=== PATIENT | male | born 1930 | race Caucasian/White ===

== ENCOUNTER 2017-11-06 17:36 | Outpatient (CLI) | payer OTHER | END 2017-11-06 17:37 | disposition critical access hospital (66) | LOC: EMS 17:36 | PROVIDERS: ATTEND Surgery | DX: R53.1 Weakness (principal) | CPT/HCPCS: A0425; A0427 ==

== ENCOUNTER 2017-11-06 18:15 | Inpatient (IN) | payer OTHER ==
[2017-11-06] MEDS ORDERED: SODIUM CHLORIDE 0.9% 1,000 ML IV ONE ×2 (18:27)
--- NOTE | 2017-11-06 18:36 | ED Physician Documentation ---
History of Present Illness - Stated complaint Stated Complaint: FEVER - Chief complaint Chief Complaint: Fever - History obtained from History obtained from: Patient, Family - History of Present Illness Timing: Today Pain level max: 0 Pain level now: 0 Improved by: zofran helped the vomiting Worsened by: nothing - Additonal information Additional information: Patient is an 87-year-old male who presents to the emergency department with weakness today. He was unable to get himself out of bed today. Found to have a fever. They called 911 and EMS picked him up. He started vomiting when EMS arrived. They gave him Zofran and the vomiting has not resolved. He denies any pain anywhere. States that he has had some coughing and nasal congestion but that started today. Lives at home with his . Review of Systems Ten Systems: 10 systems reviewed and negative Constitutional: reports: Fever, Chills Ears: denies: Ear pain Nose: reports: Rhinorrhea / runny nose, Congestion Throat: denies: Sore throat Cardiac: denies: Chest pain / pressure Respiratory: reports: Cough GI: denies: Abdominal Pain, Vomiting, Diarrhea : denies: Dysuria, Frequency, Hesitancy Skin: denies: Rash Musculoskeletal: denies: Neck pain, Back pain Neurologic: denies: Headache PD PAST MEDICAL HISTORY - Past Medical History Past Medical History: Yes Cardiovascular: Hypertension, High cholesterol, Coronary artery disease Respiratory: Sleep apnea - Past Surgical History Past Surgical History: Yes Cardiovascular: Coronary stent - Present Medications Home Medications: Ambulatory Orders Medication Instructions Recorded Confirmed Aspirin 1 tab PO DAILY 01/01/16 11/06/17 Atorvastatin [Lipitor] 20 mg PO DAILY 01/01/16 11/06/17 Calcium Carbonate/Vitamin D3 1 tab PO BID 01/01/16 11/06/17 [Calcium 500 + Vit D Caplet] Cetirizine [ZyrTEC] 1 tab PO DAILY 01/01/16 11/06/17 Dorzolamide 2% Ophth Drops 1 drop EACHEYE BID 01/01/16 11/06/17 [Trusopt 2% Ophth Drops] Fluticasone [Flonase] 1 spray JOE DAILY 01/01/16 11/06/17 Latanoprost 1 drop EACHEYE DAILY 01/01/16 11/06/17 Multivitamin [Multivitamins] 1 tab PO DAILY 01/01/16 11/06/17 Triamterene/Hydrochlorothiazid 1 tab PO DAILY 01/01/16 11/06/17 [Maxzide 75 mg-50 mg Tablet] Allopurinol 100 mg PO 11/06/17 Amlodipine Besylate 10 mg PO 11/06/17 Losartan Potassium 50 mg PO 11/06/17 guaiFENesin [Guaifenesin] 200 mg PO 11/06/17 - Allergies Allergies/Adverse Reactions: Allergies Allergy/AdvReac Type Severity Reaction Status Date / Time clopidogrel bisulfate * Allergy Rash Verified 11/06/17 18:20 [From Plavix] - Social History Does the pt smoke?: No Smoking Status: Never smoker Does the pt drink ETOH?: Yes Does the pt have substance abuse?: No - Immunizations Immunizations are current?: Yes PD ED PE NORMAL - Vitals Vital signs reviewed: Yes - General General: Alert and oriented X 3, No acute distress - HEENT HEENT: PERRL, Ears normal, Moist mucous membranes, Pharynx benign, Other ( slight bruising to R upper lateral eyelid.) - Neck Neck: Supple, no meningeal sign - Cardiac Cardiac: RRR, Strong equal pulses - Respiratory Respiratory: No respiratory distress, Other (diminished BS on the R) - Abdomen Abdomen: Soft, Non tender, Non distended - Back Back: No CVA TTP, No spinal TTP - Derm Derm: Warm and dry, No rash - Extremities Extremities: No edema - Neuro Neuro: Alert and oriented X 3 Results - Vitals Vitals: Vital Signs - 24 hr 11/06/17 18:16 Temperature 38 C H Heart Rate 75 Respiratory 18 Rate Blood Pressure 148/50 H O2 Saturation 93 Oxygen O2 Source Room air - Labs Labs: Laboratory Tests 11/06/17 11/06/17 11/06/17 18:39 18:39 18:39 WBC 12.2 H RBC 4.72 Hgb 13.5 L Hct 40.0 L MCV 84.9 MCH 28.7 MCHC 33.8 RDW 13.9 Plt Count 145 MPV 6.9 L Neut # (Auto) 10.9 H Lymph # (Auto) 0.3 L [place] # (Auto) 0.9 Eos # (Auto) 0.0 Baso # (Auto) 0.0 Absolute Nucleated RBC 0.04 Nucleated RBC % 0.3 Sodium 137 Potassium 2.8 L Chloride 105 Carbon Dioxide 26 Anion Gap 6.0 BUN 18 Creatinine 1.3 H Estimated GFR (MDRD) 52 L Glucose 139 H Lactic Acid 1.8 Calcium 8.6 Total Bilirubin 1.2 H AST 23 ALT 17 Alkaline Phosphatase 60 Total Protein 6.8 Albumin 3.8 Globulin 3.0 Albumin/Globulin Ratio 1.3 Lipase 22 Urine Color Urine Clarity Urine pH Ur Specific [place] Urine Protein Urine Glucose (UA) Urine Ketones Urine Occult Blood Urine Nitrite Urine Bilirubin Urine Urobilinogen Ur Leukocyte Esterase Urine RBC Urine WBC Ur Squamous Epith Cells Urine Bacteria Ur Microscopic Review Urine Culture Comments 11/06/17 18:56 WBC RBC Hgb Hct MCV MCH MCHC RDW Plt Count MPV Neut # (Auto) Lymph # (Auto) [place] # (Auto) Eos # (Auto) Baso # (Auto) Absolute Nucleated RBC Nucleated RBC % Sodium Potassium Chloride Carbon Dioxide Anion Gap BUN Creatinine Estimated GFR (MDRD) Glucose Lactic Acid Calcium Total Bilirubin AST ALT Alkaline Phosphatase Total Protein Albumin Globulin Albumin/Globulin Ratio Lipase Urine Color YELLOW Urine Clarity CLEAR Urine pH 5.5 Ur Specific [place] 1.025 Urine Protein 30 H Urine Glucose (UA) NEGATIVE Urine Ketones NEGATIVE Urine Occult Blood SMALL H Urine Nitrite NEGATIVE Urine Bilirubin NEGATIVE Urine Urobilinogen 0.2 (NORMAL) Ur Leukocyte Esterase NEGATIVE Urine RBC 0-5 Urine WBC 0-3 Ur Squamous Epith Cells RARE Squamous Urine Bacteria None Seen Ur Microscopic Review INDICATED Urine Culture Comments NOT INDICATED - Rads (name of study) cxr Radiology: Prelim report reviewed, EMP read contemporaneously, See rad report ( L basilar atelectasis) head CT Radiology: Prelim report reviewed, EMP read contemporaneously, See rad report ( No acute intracranial abnormality is identified. No acute fracture. Parenchymal volume loss and chronic white matter changes. Right frontal and right periorbital soft tissue edema. ) PD MEDICAL DECISION MAKING - ED course Complexity details: reviewed results, re-evaluated patient, considered differential, d/w patient, d/w family, d/w senior science consultant ED course: Patient is an 87-year-old gentleman who presents to the emergency department with fever and weakness. He is ill-appearing. Given Rocephin and azithromycin for what appears to be a left lower lobe pneumonia. He is hypoxic as well. 88- 92% on room air, satting better on 2 L. He is unable to stand unassisted and is unable to walk even with assistance. Blood cultures were drawn. IV fluids given. Discussed the case with the hospitalist, Dr. Heredia who accepts. This document was made in part using voice recognition software. While efforts are made to proofread this document, sound alike and grammatical errors may occur. - Sepsis Event Vital Signs: Vital Signs - 24 hr 11/06/17 18:16 Temperature 38 C H Heart Rate 75 Respiratory 18 Rate Blood Pressure 148/50 H O2 Saturation 93 Oxygen O2 Source Room air Departure - Departure Disposition: [facility] DC/Xfer Clinical Impression: Hypoxia, Hypokalemia, Dehydration, Weakness Pneumonia Qualifiers: Pneumonia type: due to unspecified organism Laterality: left Lung location: lower lobe of lung Qualified Code(s): J18.1 - Lobar pneumonia, unspecified organism Fever Qualifiers: Fever type: unspecified Qualified Code(s): R50.9 - Fever, unspecified Condition: Stable Discharge Date/Time: 11/06/17 20:40
[2017-11-06 18:47] LABS: BASOPHILS % (AUTO) 0.3 %; HGB - HEMOGLOBIN 13.5 g/dL (14.0-18.0); LYMPHOCYTES # (AUTO) 0.3 10^3/uL (1.5-3.5); LYMPHOCYTES % (AUTO) 2.7 %; MEAN CORPUSCULAR HEMOGLOBIN 28.7 pg (27.0-31.0); MEAN CORPUSCULAR HGB CONC 33.8 g/dL (32.0-36.0); MEAN CORPUSCULAR VOLUME 84.9 fL (80.0-94.0); MEAN PLATELET VOLUME 6.9 fL (7.4-11.4); MONOCYTES # (AUTO) 0.9 10^3/uL (0.0-1.0); MONOCYTES % (AUTO) 7.7 %; NEUTROPHILS # (AUTO) 10.9 10^3/uL (1.5-6.6); NEUTROPHILS % (AUTO) 89.3 %; PLT - PLATELET COUNT 145 10^3/uL (130-450); RED BLOOD COUNT 4.72 10^6/uL (4.70-6.10); RED CELL DISTRIBUTION WIDTH 13.9 % (12.0-15.0); WHITE BLOOD COUNT 12.2 x10^3/uL (4.8-10.8)
[2017-11-06 18:59] LABS: ALBUMIN 3.8 g/dL (3.2-5.5); ALBUMIN/GLOBULIN RATIO 1.3 (1.0-2.2); BILIRUBIN,TOTAL 1.2 mg/dL (0.2-1.0); CALCIUM 8.6 mg/dL (8.5-10.3); CREATININE 1.3 mg/dL (0.6-1.2); TOTAL PROTEIN 6.8 g/dL (6.7-8.2)
[2017-11-06 19:07] LABS: BILIRUBIN,URINE NEGATIVE (NEGATIVE); GLUCOSE, URINE (UA) NEGATIVE (NEGATIVE); KETONES,URINE (UA) NEGATIVE (NEGATIVE); LEUKOCYTE ESTERASE, URINE NEGATIVE (NEGATIVE); NITRITE,URINE NEGATIVE (NEGATIVE); OCCULT BLOOD,URINE SMALL (NEGATIVE); PH,URINE 5.5 PH (5.0-7.5); PROTEIN,URINE 30 mg/dL (NEGATIVE); UROBILINOGEN,URINE 0.2 (NORMAL) E.U./dL (NORMAL)
[2017-11-06 19:13] LABS: CLARITY,URINE CLEAR (CLEAR)
[2017-11-06 19:14] LABS: BACTERIA,URINE None Seen /HPF (None Seen); RBC,URINE 0-5 /HPF (0-5); SQUAMOUS EPITHELIAL CELL,UR RARE Squamous (<= Few)
--- NOTE | 2017-11-06 19:25 | XRAY Report ---
Procedure Date: 11/06/2017 Accession Number: [id number] / [id number] Procedure: XR - Chest 1 View X-Ray CPT Code: 37818 FULL RESULT: EXAM: CHEST RADIOGRAPHY EXAM DATE: 11/06/2017 06:38 PM. CLINICAL HISTORY: Fever, cough. COMPARISON: Chest x-ray 01/01/2016. TECHNIQUE: 1 view. FINDINGS: Lungs/Pleura: Mild elevation right hemidiaphragm. No pleural effusion or pneumothorax. Trace left basilar atelectasis. Mediastinum: Within exam limitations, the cardiomediastinal contour is normal. Other: Bilateral glenohumeral osteoarthritis. IMPRESSION: Trace left basilar atelectasis. RADIA
[2017-11-06] MEDS ORDERED: AZITHROMYCIN INJ 500 MG in SODIUM CHLORIDE 0.9% 250 ML IV STA (19:37)
[2017-11-06] MEDS ORDERED: cefTRIAXone 1 GM VIAL IVP STA (19:37)
[2017-11-06] MEDS ORDERED: HYDROcod/ACETAM 5/325 MG TABLET PO PRN (20:05)
[2017-11-06] MEDS ORDERED: SODIUM CHLORIDE FLUSH 0.9% 10 ML SYRINGE IVP PRN (20:05)
[2017-11-06] MEDS ORDERED: TEMAZEPAM 15 MG CAPSULE PO PRN (20:05)
--- NOTE | 2017-11-06 20:43 | CT Report ---
Procedure Date: 11/06/2017 Accession Number: [id number] / [id number] Procedure: CT - Head W/O CPT Code: FULL RESULT: EXAM: CT HEAD EXAM DATE: 11/06/2017 07:56 PM. CLINICAL HISTORY: Fall, R eyelid bruising, doesn't recall injury. COMPARISON: None. TECHNIQUE: Multiaxial CT images were obtained from the foramen magnum to the vertex. Reformats: Coronal. IV contrast: None. In accordance with CT protocol optimization, one or more of the following dose reduction techniques were utilized for this exam: automated exposure control, adjustment of mA and/or KV based on patient size, or use of iterative reconstructive technique. FINDINGS: Parenchyma: Parenchymal volume loss with periventricular regions of low attenuation. No evidence of an acute vascular insult or acute parenchymal hemorrhage. No midline shift. No mass effect . Extraaxial Spaces: Extra-axial spaces are prominent. No subdural or epidural collections identified. Ventricles: Ventricles are prominent although symmetric. Sinuses and Orbits: Moderate left ethmoid sinus disease. Remainder of the paranasal sinuses and mastoid air cells are clear. Bones: No evidence of fracture or calvarial defect. Other: Right frontal and right supraorbital and periorbital soft tissue edema. Globes and orbits are unremarkable. Vascular calcifications are noted. IMPRESSION: 1. No acute intracranial abnormality is identified. 2. No acute fracture. 3. Parenchymal volume loss and chronic white matter changes. 4. Right frontal and right periorbital soft tissue edema. RADIA
[2017-11-06] MEDS ORDERED: AZITHROMYCIN INJ 500 MG in SODIUM CHLORIDE 0.9% 250 ML IV SCH (21:00)
[2017-11-06] MEDS ORDERED: DORZOLAMIDE 2% OPHTH DROPS EACHEYE SCH (21:00)
[2017-11-06] MEDS ORDERED: D5.45NS W/20 MEQ KCL 1,000 ML IV SCH (21:00)
--- NOTE | 2017-11-06 21:59 | HISTORY & PHYSICAL EXAMINATION ---
Chief Complaint - Chief Complaint Chief Complaint: "I have no energy" History of Present Illness - Admitted From Admitted From:: Home - History Obtained From History obtained from: Patient, , ED physician Exam Limitations: Pt is sleepy - History of Present Illness HPI Comment/Other: Mr. Osvaldo Kelley is a very pleasant 87-year-old gentleman who is somewhat sleepy at the time of the exam who states that he woke up this morning with no energy. He says he felt fine yesterday but today when he woke up he was so tired that he could not get out of bed. He went back to sleep and when he realized that he was not getting better but in fact may be even a little worse he decided to come to the emergency department where he was found to have a left lower lobe pneumonia. He will be admitted to medical surgical bed, placed on IV antibiotics, supplemental oxygen, and bronchodilators. History - Past Medical History Cardiovascular: reports: Congestive heart failure, Hypertension, High cholesterol, Coronary artery disease Respiratory: reports: Sleep apnea HEENT: reports: Glaucoma, Other (Allergic rhinitis) Musculoskeletal: reports: Gout - Past Surgical History Cardiovascular: reports: Coronary stent - Family & Social History Family History: Mother: , CAD, Hyperlipidemia, Hypertension, Father: , CAD, Hyperlipidemia, Hypertension Living arrangement: At home Living Situation: With spouse/s.o. - Substance History Use: Uses substance without health or social issues: Alcohol Abuse: Recurrent use of substance despite neg consequences: NONE Dependence: Experiences withdrawal or developed tolerances: NONE - POLST Patient has POLST: No POLST Status: Full Code Meds/Allgy - Home Medications Home Medications: Ambulatory Orders Medication Instructions Recorded Confirmed Aspirin 1 tab PO DAILY 01/01/16 11/06/17 Atorvastatin [Lipitor] 20 mg PO DAILY 01/01/16 11/06/17 Calcium Carbonate/Vitamin D3 1 tab PO BID 01/01/16 11/06/17 [Calcium 500 + Vit D Caplet] Cetirizine [ZyrTEC] 1 tab PO DAILY 01/01/16 11/06/17 Dorzolamide 2% Ophth Drops 1 drop EACHEYE BID 01/01/16 11/06/17 [Trusopt 2% Ophth Drops] Fluticasone [Flonase] 1 spray JOE DAILY 01/01/16 11/06/17 Latanoprost 1 drop EACHEYE DAILY 01/01/16 11/06/17 Multivitamin [Multivitamins] 1 tab PO DAILY 01/01/16 11/06/17 Triamterene/Hydrochlorothiazid 1 tab PO DAILY 01/01/16 11/06/17 [Maxzide 75 mg-50 mg Tablet] Allopurinol 100 mg PO 11/06/17 Amlodipine Besylate 10 mg PO 11/06/17 Losartan Potassium 50 mg PO 11/06/17 guaiFENesin [Guaifenesin] 200 mg PO 11/06/17 - Allergies Allergies/Adverse Reactions: Allergies Allergy/AdvReac Type Severity Reaction Status Date / Time clopidogrel bisulfate * Allergy Rash Verified 11/06/17 18:20 [From Plavix] Review of Systems - Constitutional Constitutional: reports: Fatigue, Fever, Chills, Malaise, Weakness, Poor appetite. denies: Night sweats - Eyes Eyes: denies: Pain, Irritation, Amaurosis, Blurred vision - Ears, Nose & Throat Ears, Nose & Throat: denies: Ear pain, Hearing loss, Tinnitus, Vertigo, Nasal pain, Nosebleeds - Cardiovascular Cariovascular: denies: Irregular heart rate, Palpitations, Chest pain, Edema - Respiratory Respiratory: denies: Cough, Sputum production, Wheezing, Hemoptysis, Orthopnea - Gastrointestinal Gastrointestinal: denies: Abdominal pain, Abdominal distention, Constipation, Diarrhea, Change in bowel habits, Rectal bleeding - Genitourinary Genitourinary: denies: Dysuria, Frequency, Urgency, Hematuria - Musculoskeletal Musculoskeletal: denies: Muscle pain, Back pain, Muscle aches, Stiffness - Integumentary Integumentary: denies: Rash, Pruritis, Lesions, Dryness - Neurological Neurological: reports: General weakness. denies: Focal weakness, Headache, Dizziness, Abnormal gait, Seizures, Slurred speech - Psychiatric Psychiatric: denies: Depression, Anxiety, Suicidal, Hallucinations - Endocrine Endocrine: denies: Polyuria, Polydypsia, Polyphagia - Hematologic/Lymphatic Hematologic/Lymphatic: denies: Anemia, Bruising, Lymphadenopathy - All Other Systems All Other Systems: reports: Reviewed and negative Exam - Vital Signs Reviewed Vital Signs: Yes Vital Signs: Vital Signs x48h Temp Pulse Pulse Resp BP BP Pulse Ox 11/06/17 20:41 37.7 C H 79 16 140/56 H 89 L 11/06/17 20:13 37.7 C H 74 26 H 148/60 H 93 - Physical Exam General Appearance: positive: No acute distress, Lethargic Eyes Bilateral: positive: Normal inspection, PERRL, EOMI, No lid inflammation, Conjunctivae nml, No scleral icterus ENT: positive: ENT inspection nml, Pharynx nml, No signs of dehydration Neck: positive: Nml inspection, Thyroid nml, No JVD, Trachea midline. negative : Thyromegaly Respiratory: positive: Chest non-tender, No respiratory distress, Breath sounds nml. negative: Wheezes, Rales, Rhonchi Cardiovascular: positive: Regular rate & rhythm, No murmur, No gallop Peripheral Pulses: positive: 1+ Abdomen: positive: Non-tender, No organomegaly, Nml bowel sounds, No distention. negative: Guarding, Rebound Back: positive: Nml inspection. negative: CVA tenderness (R), CVA tenderness (L ) Skin: positive: Color nml, No rash, Warm, Dry. negative: Cyanosis Extremities: positive: Non-tender, Full ROM, Nml appearance, No pedal edema Neurologic/Psychiatric: positive: Oriented x3, CN's nml (2-12), Motor nml, Sensation nml, Mood/affect nml Conclusion/Plan - Problem List (1) Pneumonia Conclusion/Plan: Left basilar atelectasis seen on chest x-ray, patient has a nonproductive cough and fever. He also has an elevated white count. We will start the patient on ceftriaxone and azithromycin IV, give him supplemental oxygen and bronchodilators as needed, and address any other comorbidities as needed. Qualifiers: Pneumonia type: due to unspecified organism Laterality: left Lung location: lower lobe of lung Qualified Code(s): J18.1 - Lobar pneumonia, unspecified organism (2) Hypertension Conclusion/Plan: We will continue the patient on amlodipine, losartan, and his diuretics while he is in hospital. (3) Congestive heart failure Conclusion/Plan: We will continue the patient on his amlodipine, losartan, and diuretics while he is inpatient. (4) Coronary artery disease Conclusion/Plan: The patient is status post stenting. We will continue him on his daily aspirin while he is inpatient. (5) Hyperlipidemia Conclusion/Plan: Presumably well-managed, we will continue the patient on his home dosing of Lipitor while he is inpatient. (6) History of gout Conclusion/Plan: No evidence of active gout at this time. We will continue the patient on allopurinol while he is inpatient. (8) Glaucoma Conclusion/Plan: We will continue the patient on dorzolamide and latanoprost while he is inpatient. - Lab Results Lab results reviewed: Yes Fish Bones: 11/06/17 18:39 11/06/17 18:39 - Diagnostic Imaging Results Diagnostic Imaging Results Comments: EXAM: CHEST RADIOGRAPHY EXAM DATE: 11/06/2017 06:38 PM. CLINICAL HISTORY: Fever, cough. COMPARISON: Chest x-ray 01/01/2016. TECHNIQUE: 1 view. FINDINGS: Lungs/Pleura: Mild elevation right hemidiaphragm. No pleural effusion or pneumothorax. Trace left basilar atelectasis. Mediastinum: Within exam limitations, the cardiomediastinal contour is normal. Other: Bilateral glenohumeral osteoarthritis. IMPRESSION: Trace left basilar atelectasis. EXAM: CT HEAD EXAM DATE: 11/06/2017 07:56 PM. CLINICAL HISTORY: Fall, R eyelid bruising, doesn't recall injury. COMPARISON: None. TECHNIQUE: Multiaxial CT images were obtained from the foramen magnum to the vertex. Reformats: Coronal. IV contrast: None. In accordance with CT protocol optimization, one or more of the following dose reduction techniques were utilized for this exam: automated exposure control, adjustment of mA and/or KV based on patient size, or use of iterative reconstructive technique. FINDINGS: Parenchyma: Parenchymal volume loss with periventricular regions of low attenuation. No evidence of an acute vascular insult or acute parenchymal hemorrhage. No midline shift. No mass effect . Extraaxial Spaces: Extra-axial spaces are prominent. No subdural or epidural collections identified. Ventricles: Ventricles are prominent although symmetric. Sinuses and Orbits: Moderate left ethmoid sinus disease. Remainder of the paranasal sinuses and mastoid air cells are clear. Bones: No evidence of fracture or calvarial defect. Other: Right frontal and right supraorbital and periorbital soft tissue edema. Globes and orbits are unremarkable. Vascular calcifications are noted. IMPRESSION: 1. No acute intracranial abnormality is identified. 2. No acute fracture. 3. Parenchymal volume loss and chronic white matter changes. 4. Right frontal and right periorbital soft tissue edema. Core Measures - Anticipated LOS I expect patient to be DC'd or transferred within 96 hours.: Yes - DVT/VTE - Prophylaxis VTE/DVT Device ordered at admit?: Yes
[2017-11-06] MEDS: POTASSIUM CHLOR 10 MEQ/100 ML 10 MEQ/100 ML BAG IV SCH (22:54)
[2017-11-07] MEDS: POTASSIUM CHLOR 10 MEQ/100 ML 10 MEQ/100 ML BAG IV SCH ×3 (00:05→02:19)
[2017-11-07] MEDS: SODIUM CHLORIDE FLUSH 0.9% 10 ML SYRINGE IVP SCH ×3 (00:17→15:43)
[2017-11-07] MEDS: ACETAMINOPHEN 325 MG TABLET PO PRN ×2 (01:30→08:36)
[2017-11-07 05:44] LABS: HGB - HEMOGLOBIN 13.2 g/dL (14.0-18.0); MEAN CORPUSCULAR HEMOGLOBIN 29.2 pg (27.0-31.0); MEAN CORPUSCULAR HGB CONC 34.6 g/dL (32.0-36.0); MEAN CORPUSCULAR VOLUME 84.6 fL (80.0-94.0); MEAN PLATELET VOLUME 7.2 fL (7.4-11.4); RED BLOOD COUNT 4.5 10^6/uL (4.70-6.10); RED CELL DISTRIBUTION WIDTH 14.2 % (12.0-15.0); WHITE BLOOD COUNT 12.1 x10^3/uL (4.8-10.8)
[2017-11-07 06:00] LABS: CALCIUM 8.5 mg/dL (8.5-10.3); CREATININE 1.4 mg/dL (0.6-1.2)
[2017-11-07] MEDS ORDERED: AZITHROMYCIN INJ 500 MG in SODIUM CHLORIDE 0.9% 250 ML IV SCH (07:46)
[2017-11-07] MEDS ORDERED: POTASSIUM CHLORIDE 20 MEQ TABLET PO ONE ×3 (07:47→15:43)
[2017-11-07] MEDS ORDERED: NS W/40 MEQ KCL 1,000 ML IV SCH (08:00)
[2017-11-07] MEDS: POLYETHYLENE GLYCOL 3350 17 GM PACKET PO SCH (08:16)
[2017-11-07] MEDS: CETIRIZINE 10 MG TABLET PO SCH (08:36)
[2017-11-07] MEDS: ATORVASTATIN 10 MG TABLET PO SCH (08:36)
[2017-11-07] MEDS: ASPIRIN CHEW 81 MG TABLET PO SCH (08:36)
[2017-11-07] MEDS: TRIAMT/HCTZ 37.5 MG/25 MG CAPSULE PO SCH (08:36)
[2017-11-07] MEDS: POTASSIUM CHLORIDE 20 MEQ TABLET PO SCH ×2 (08:36→19:35)
[2017-11-07] MEDS: FLUTICASONE NASAL SPRAY NAS SCH (08:37)
[2017-11-07] MEDS: DORZOLAMIDE 2% OPHTH DROPS EACHEYE SCH ×2 (08:37→19:36)
[2017-11-07] MEDS ORDERED: cefTRIAXone 1 GM in SODIUM CHLORIDE 0.9% MINIBAG 100 ML IV SCH (09:00)
--- NOTE | 2017-11-07 09:01 | PROVIDER PROGRESS NOTE ---
Subjective - Prog Note Date Prog Note Date: 11/07/17 - Subjective Pt reports feeling: Improved Subjective: pt report he felt better than yesterday, but he still had low degree fever. He denies CP, headache, abdominal pain, N/V. nurse report he had water-like diarrhea. Current Medications - Current Medications Current Medications: Active Medications Acetaminophen (Tylenol) 650 mg PO Q4HR PRN PRN Reason: Pain or Fever > 38C (100.4F) Last Admin: 11/07/17 08:36 Dose: 650 mg Hydrocodone Bitart/Acetaminophen ([place] 5/325) 1 tab PO Q4HR PRN PRN Reason: Pain 5 to 7 Allopurinol (Zyloprim) 100 mg PO DAILY [facility] Amlodipine Besylate (Norvasc) 10 mg PO DAILY [facility] Aspirin ([place] Aspirin) 81 mg PO DAILY [facility] Last Admin: 11/07/17 08:36 Dose: 81 mg Atorvastatin Calcium (Lipitor) 20 mg PO DAILY [facility] Last Admin: 11/07/17 08:36 Dose: 20 mg Cetirizine HCl (Zyrtec) 10 mg PO DAILY [facility] Last Admin: 11/07/17 08:36 Dose: 10 mg Dorzolamide HCl (Trusopt 2% Ophth Drops) 1 drops EACHEYE BID [facility] Last Admin: 11/07/17 08:37 Dose: 1 drops Fluticasone Propionate (Flonase) 1 sprays JOE DAILY [facility] Last Admin: 11/07/17 08:37 Dose: 1 sprays Potassium Chloride/Sodium Chloride (Normal Saline 0.9% W/40 Meq Kcl) 1,000 mls @ 100 mls/hr IV .Q10H [facility] Stop: 11/07/17 17:59 Last Infusion: 11/07/17 12:30 Dose: 100 mls/hr Cefepime HCl 1 gm/ Sodium (Chloride) 100 mls @ 200 mls/hr IV BID [facility] Last Infusion: 11/07/17 10:15 Dose: Infused Vancomycin HCl 2 gm/ Sodium (Chloride) 500 mls @ 250 mls/hr IV ONCE [facility] Stop: 11/07/17 14:00 Last Infusion: 11/07/17 12:31 Dose: Infused Vancomycin HCl 1 gm/Vancomycin HCl 500 mg/ Sodium Chloride 500 mls @ 250 mls/ hr IV Q24H [facility] Latanoprost (Xalatan Ophth Drops) 1 drops EACHEYE QPM [facility] Polyethylene Glycol (Miralax) 17 gm PO DAILY [facility] Last Admin: 11/07/17 08:16 Dose: Not Given Potassium Chloride (K-Dur) 20 meq PO BID [facility] Last Admin: 11/07/17 08:36 Dose: 20 meq Sodium Chloride (Normal Saline Flush 0.9%) 10 ml IVP PRN PRN PRN Reason: NEEDED PER PROVIDER ORDERS Sodium Chloride (Normal Saline Flush 0.9%) 10 ml IVP 0100,0900,1700 [facility] Last Admin: 11/07/17 08:37 Dose: 10 ml Temazepam (Restoril) 15 mg PO QPM PRN PRN Reason: Insomnia Triamterene/HCTZ (Dyazide) 2 cap PO DAILY [facility] Last Admin: 11/07/17 08:36 Dose: 2 cap Aspirin 81 mg PO DAILY 01/01/16 Atorvastatin [Lipitor] 20 mg PO DAILY 01/01/16 Calcium Carbonate/Vitamin D3 [Calcium 500 + Vit D Caplet] 1 tab PO BID 01/01/16 Cetirizine [ZyrTEC] 10 mg PO DAILY 01/01/16 Dorzolamide 2% Ophth Drops [Trusopt 2% Ophth Drops] 1 drop EACHEYE BID 01/01/16 Fluticasone [Flonase] 1 spray JOE DAILY 01/01/16 Latanoprost 1 drop EACHEYE DAILY 01/01/16 Multivitamin [Multivitamins] 1 tab PO DAILY 01/01/16 Triamterene/Hydrochlorothiazid [Maxzide 75 mg-50 mg Tablet] 1 tab PO DAILY 12/31 Allopurinol 100 mg PO DAILY 11/06/17 Amlodipine Besylate 10 mg PO DAILY 11/06/17 Losartan Potassium 50 mg PO DAILY 11/06/17 Objective - Vital Signs/Intake & Output Reviewed Vital Signs: Yes Vital Signs: Vital Signs x48h Temp Pulse Resp BP Pulse Ox 11/07/17 08:00 38.1 C H 68 16 123/53 L 98 11/07/17 03:45 37.7 C H Intake & Output: Intake & Output 11/04/17 11/05/17 11/06/17 11/07/17 23:59 23:59 23:59 23:59 Intake Total 436.667 810 Output Total 375 Balance 436.667 435 - Objective General Appearance: positive: No acute distress, Alert. negative: Lethargic Eyes Bilateral: positive: Normal inspection, PERRL, No lid inflammation, Conjunctivae nml ENT: positive: ENT inspection nml, Pharynx nml, No signs of dehydration. negative: Purulent nasal drainage, Pharyngeal erythema, Oral lesions Neck: positive: Nml inspection, Thyroid nml, No JVD, Trachea midline. negative : Thyromegaly, Lymphadenopathy (R), Lymphadenopathy (L), Stiff neck, Kernig's sign, Carotid bruit, Swelling/bruising, Tracheal deviation Respiratory: positive: Chest non-tender, No respiratory distress, Breath sounds nml. negative: Wheezes, Rales, Rhonchi Cardiovascular: positive: Regular rate & rhythm, No gallop, Systolic murmur, Diastolic murmur. negative: Irregularly irregular, Extrasystoles, Tachycardia, Bradycardia, JVD present Peripheral Pulses: 2+ Radial (R), 2+ Radial (L), 2+ Dorsalis pedis (R), 2+ Dorsalis pedis (L) Abdomen: positive: Non-tender, No organomegaly, Nml bowel sounds, No distention. negative: Tenderness, Guarding, Rebound Back: positive: Nml inspection. negative: CVA tenderness (R), CVA tenderness (L ) Skin: positive: Color nml, No rash, Warm, Dry. negative: Cyanosis, Diaphoresis , Pallor Extremities: positive: Non-tender, Full ROM, Nml appearance. negative: Calf tenderness, Joint swelling, Amina's sign/cords Neurologic/Psychiatric: positive: Oriented x3, Motor nml, Sensation nml. negative: Weakness, Sensory loss, Facial droop, Slurred/abnml speech, Depressed mood/affect - Lab Results Fish Bones: 11/07/17 05:15 11/07/17 05:15 Other Labs: Lab Results x24hrs 11/07/17 11/07/17 Range/Units 05:15 05:15 WBC 12.1 H (4.8-10.8) x10^3/uL RBC 4.50 L (4.70-6.10) 10^6/uL Hgb 13.2 L (14.0-18.0) g/dL Hct 38.1 L (42.0-52.0) % MCV 84.6 (80.0-94.0) fL MCH 29.2 (27.0-31.0) pg MCHC 34.6 (32.0-36.0) g/dL RDW 14.2 (12.0-15.0) % Plt Count 123 L (130-450) 10^3/uL MPV 7.2 L (7.4-11.4) fL Sodium 140 (135-145) mmol/L Potassium 2.9 L (3.5-5.0) mmol/L Chloride 105 (101-111) mmol/L Carbon Dioxide 26 (21-32) mmol/L Anion Gap 9.0 (6-13) BUN 19 (6-20) mg/dL Creatinine 1.4 H (0.6-1.2) mg/dL Estimated GFR (MDRD) 48 L (>89) Glucose 129 H (70-100) mg/dL Calcium 8.5 (8.5-10.3) mg/dL ABX Reporting Has patient been on IV antibiotics over the past 48 hours?: Yes Assessment/Plan - Problem List (1) Pneumonia Impression: Conclusion/Plan: pt present Fever, elevated WBC, possible pneumonia. since pt continue to have fever, and WBC remain the same. Lactic acid in normal arrange switch antibiotics to Cefepim, and vancomycin blood culture pending IVF Left basilar atelectasis seen on chest x-ray, patient has a nonproductive cough and fever. He also has an elevated white count. We will start the patient on ceftriaxone and azithromycin IV, give him supplemental oxygen and bronchodilators as needed, and address any other comorbidities as needed. Qualifiers: Pneumonia type: due to unspecified organism Laterality: left Lung location: lower lobe of lung Qualified Code(s): J18.1 - Lobar pneumonia, unspecified organism (2) Hypertension Conclusion/Plan: stable, continue home regime We will continue the patient on amlodipine, losartan, and his diuretics while he is in hospital. (3) Congestive heart failure Conclusion/Plan: stable, continue home regime We will continue the patient on his amlodipine, losartan, and diuretics while he is inpatient. (4) Coronary artery disease Conclusion/Plan: The patient is status post stenting. We will continue him on his daily aspirin while he is inpatient. (5) Hyperlipidemia Conclusion/Plan: Presumably well-managed, we will continue the patient on his home dosing of Lipitor while he is inpatient. (6) History of gout Conclusion/Plan: No evidence of active gout at this time. We will continue the patient on allopurinol while he is inpatient. (8) Glaucoma Conclusion/Plan: We will continue the patient on dorzolamide and latanoprost while he is inpatient. (9) hypokalemia pt continue to have potassium 2.9 after replacement of [address] Heredia's report continue replace, with PO and IV of potassium check at 1400, follow up (10) diarrhea nurse report water-likely diarrhea. pt just begin antibiotics on yesterday afternoon PCR for c.diff, Ova/para culture IVF lab and vital monitor (11) fever continue antibiotics, precaution of sepsis IVF vital monitor follow up blood culture Qualifiers: Pneumonia type: due to unspecified organism Laterality: left Lung location: lower lobe of lung Qualified Code(s): J18.1 - Lobar pneumonia, unspecified organism
[2017-11-07] MEDS: CEFEPIME 1 GM in SODIUM CHLORIDE 0.9% MINIBAG 100 ML IV SCH ×2 (09:45→19:36)
[2017-11-07] MEDS ORDERED: VANCOMYCIN INJ 2 GM in SODIUM CHLORIDE 0.9% 500 ML IV SCH ×2 (10:00→11:00)
[2017-11-07] MEDS ORDERED: ZINC OXIDE 20% OINT 28.35 GM TUBE TOP PRN (15:42)
[2017-11-07] MEDS: LATANOPROST 0.005% OPHTH DROPS EACHEYE SCH (20:05)
[2017-11-08] MEDS: SODIUM CHLORIDE FLUSH 0.9% 10 ML SYRINGE IVP SCH ×3 (01:28→17:09)
[2017-11-08] MEDS: ACETAMINOPHEN 325 MG TABLET PO PRN (05:23)
[2017-11-08 05:35] LABS: HGB - HEMOGLOBIN 12.9 g/dL (14.0-18.0); MEAN CORPUSCULAR HEMOGLOBIN 29.5 pg (27.0-31.0); MEAN CORPUSCULAR HGB CONC 34.6 g/dL (32.0-36.0); MEAN CORPUSCULAR VOLUME 85.2 fL (80.0-94.0); MEAN PLATELET VOLUME 7.1 fL (7.4-11.4); RED BLOOD COUNT 4.38 10^6/uL (4.70-6.10); RED CELL DISTRIBUTION WIDTH 14.6 % (12.0-15.0); WHITE BLOOD COUNT 8.1 x10^3/uL (4.8-10.8)
[2017-11-08 05:43] LABS: CALCIUM 8.9 mg/dL (8.5-10.3); CREATININE 1.1 mg/dL (0.6-1.2); MAGNESIUM 2.1 mg/dL (1.7-2.8); PHOSPHORUS 1.8 mg/dL (2.5-4.6)
[2017-11-08] MEDS ORDERED: POTASSIUM CHLORIDE 20 MEQ TABLET PO ONE (07:33)
[2017-11-08] MEDS: amLODIPine 5 MG TABLET PO SCH (08:17)
[2017-11-08] MEDS: CEFEPIME 1 GM in SODIUM CHLORIDE 0.9% MINIBAG 100 ML IV SCH ×2 (08:17→21:23)
[2017-11-08] MEDS: ALLOPURINOL 100 MG TABLET PO SCH (08:25)
[2017-11-08] MEDS: TRIAMT/HCTZ 37.5 MG/25 MG CAPSULE PO SCH (08:25)
[2017-11-08] MEDS: NEUTRA-PHOS 250 MG TABLET PO SCH ×3 (08:25→17:09)
[2017-11-08] MEDS: POTASSIUM CHLORIDE 20 MEQ TABLET PO SCH ×2 (08:26→21:23)
[2017-11-08] MEDS: ATORVASTATIN 10 MG TABLET PO SCH (08:26)
[2017-11-08] MEDS: CETIRIZINE 10 MG TABLET PO SCH (08:26)
[2017-11-08] MEDS: ASPIRIN CHEW 81 MG TABLET PO SCH (08:26)
[2017-11-08] MEDS: FLUTICASONE NASAL SPRAY NAS SCH (08:27)
[2017-11-08] MEDS: DORZOLAMIDE 2% OPHTH DROPS EACHEYE SCH ×2 (08:27→21:31)
[2017-11-08] MEDS: POLYETHYLENE GLYCOL 3350 17 GM PACKET PO SCH (08:27)
[2017-11-08] MEDS ORDERED: SODIUM CHLORIDE 0.9% 1,000 ML IV SCH (10:00)
[2017-11-08] MEDS: SACCHAROMYCES BOULARDII 250 MG CAPSULE PO SCH ×2 (10:40→17:09)
[2017-11-08] MEDS: VANCOMYCIN INJ 1 GM, VANCOMYCIN INJ 500 MG in SODIUM CHLORIDE 0.9% 500 ML IV SCH (11:23)
--- NOTE | 2017-11-08 12:35 | PROVIDER PROGRESS NOTE ---
Subjective - Prog Note Date Prog Note Date: 11/08/17 - Subjective Pt reports feeling: Improved Subjective: pt report he has no fever, he walked to bathroom and had shower. He feel better than yesterday. But pt report he still has some diarrhea. pt denies CP, fever, chill, SOB. Current Medications - Current Medications Current Medications: Active Medications Acetaminophen (Tylenol) 650 mg PO Q4HR PRN PRN Reason: Pain or Fever > 38C (100.4F) Last Admin: 11/08/17 05:23 Dose: 650 mg Hydrocodone Bitart/Acetaminophen ([place] 5/325) 1 tab PO Q4HR PRN PRN Reason: Pain 5 to 7 Last Admin: 11/08/17 03:13 Dose: 1 tab Allopurinol (Zyloprim) 100 mg PO DAILY [facility] Last Admin: 11/08/17 08:25 Dose: 100 mg Amlodipine Besylate (Norvasc) 10 mg PO DAILY [facility] Last Admin: 11/08/17 08:17 Dose: 10 mg Aspirin ([place] Aspirin) 81 mg PO DAILY [facility] Last Admin: 11/08/17 08:26 Dose: 81 mg Atorvastatin Calcium (Lipitor) 20 mg PO DAILY [facility] Last Admin: 11/08/17 08:26 Dose: 20 mg Cetirizine HCl (Zyrtec) 10 mg PO DAILY [facility] Last Admin: 11/08/17 08:26 Dose: 10 mg Dorzolamide HCl (Trusopt 2% Ophth Drops) 1 drops EACHEYE BID [facility] Last Admin: 11/08/17 08:27 Dose: 1 drops Fluticasone Propionate (Flonase) 1 sprays JOE DAILY [facility] Last Admin: 11/08/17 08:27 Dose: 1 sprays Cefepime HCl 1 gm/ Sodium (Chloride) 100 mls @ 200 mls/hr IV BID [facility] Last Infusion: 11/08/17 10:14 Dose: Infused Vancomycin HCl 1 gm/Vancomycin HCl 500 mg/ Sodium Chloride 500 mls @ 250 mls/ hr IV Q24H [facility] Last Admin: 11/08/17 11:23 Dose: 250 mls/hr Sodium Chloride (Normal Saline 0.9%) 1,000 mls @ 83.333 mls/hr IV .Q12H [facility] Stop: 11/08/17 21:59 Last Admin: 11/08/17 10:40 Dose: 83.333 mls/hr Latanoprost (Xalatan Ophth Drops) 1 drops EACHEYE QPM [facility] Last Admin: 11/07/17 20:05 Dose: 1 drops Loperamide HCl (Imodium) 2 mg PO QID PRN PRN Reason: Diarrhea Multi-Ingredient Ointment (Zinc Oxide) 1 applic TOP PRN PRN PRN Reason: Skin Care Polyethylene Glycol (Miralax) 17 gm PO DAILY [facility] Last Admin: 11/08/17 08:27 Dose: Not Given Potassium Chloride (K-Dur) 20 meq PO BID [facility] Last Admin: 11/08/17 08:26 Dose: 20 meq Saccharomyces Boulardii (Florastor) 500 mg PO BIDWM [facility] Last Admin: 11/08/17 10:40 Dose: 500 mg Sodium Chloride (Normal Saline Flush 0.9%) 10 ml IVP PRN PRN PRN Reason: NEEDED PER PROVIDER ORDERS Sodium Chloride (Normal Saline Flush 0.9%) 10 ml IVP 0100,0900,1700 [facility] Last Admin: 11/08/17 08:26 Dose: 10 ml Sodium Phosphate (K-Phos Neutral) 250 mg PO TIDWM [facility] Last Admin: 11/08/17 12:10 Dose: 250 mg Temazepam (Restoril) 15 mg PO QPM PRN PRN Reason: Insomnia Triamterene/HCTZ (Dyazide) 2 cap PO DAILY [facility] Last Admin: 11/08/17 08:25 Dose: 2 cap Aspirin 81 mg PO DAILY 01/01/16 Atorvastatin [Lipitor] 20 mg PO DAILY 01/01/16 Calcium Carbonate/Vitamin D3 [Calcium 500 + Vit D Caplet] 1 tab PO BID 01/01/16 Cetirizine [ZyrTEC] 10 mg PO DAILY 01/01/16 Dorzolamide 2% Ophth Drops [Trusopt 2% Ophth Drops] 1 drop EACHEYE BID 01/01/16 Fluticasone [Flonase] 1 spray JOE DAILY 01/01/16 Latanoprost 1 drop EACHEYE DAILY 01/01/16 Multivitamin [Multivitamins] 1 tab PO DAILY 01/01/16 Triamterene/Hydrochlorothiazid [Maxzide 75 mg-50 mg Tablet] 1 tab PO DAILY 12/31 Allopurinol 100 mg PO DAILY 11/06/17 Amlodipine Besylate 10 mg PO DAILY 11/06/17 Losartan Potassium 50 mg PO DAILY 11/06/17 Objective - Vital Signs/Intake & Output Reviewed Vital Signs: Yes Vital Signs: Vital Signs x48h Temp Pulse Resp BP Pulse Ox 11/08/17 08:00 36.5 C 86 20 95/60 92 Intake & Output: Intake & Output 11/05/17 11/06/17 11/07/17 11/08/17 23:59 23:59 23:59 23:59 Intake Total 326.742 5696.333 700 Output Total 575 Balance 643.808 4144.333 700 - Objective General Appearance: positive: No acute distress, Alert. negative: Lethargic Eyes Bilateral: positive: Normal inspection, PERRL, No lid inflammation, Conjunctivae nml ENT: positive: ENT inspection nml, Pharynx nml, No signs of dehydration. negative: Purulent nasal drainage, Pharyngeal erythema, Oral lesions Neck: positive: Nml inspection, Thyroid nml, No JVD, Trachea midline. negative : Thyromegaly, Lymphadenopathy (R), Lymphadenopathy (L), Stiff neck, Carotid bruit, Swelling/bruising, Tracheal deviation Respiratory: positive: Chest non-tender, No respiratory distress, Breath sounds nml. negative: Wheezes, Rales, Rhonchi Cardiovascular: positive: Regular rate & rhythm, No murmur, No gallop. negative : Irregularly irregular, Extrasystoles, Tachycardia, Bradycardia, JVD present, Systolic murmur, Diastolic murmur Peripheral Pulses: 2+ Radial (R), 2+ Radial (L), 2+ Dorsalis pedis (R), 2+ Dorsalis pedis (L) Abdomen: positive: Non-tender, No organomegaly, Nml bowel sounds, No distention. negative: Tenderness, Guarding, Rebound Back: positive: Nml inspection. negative: CVA tenderness (R), CVA tenderness (L ) Skin: positive: Color nml, No rash, Warm, Dry. negative: Cyanosis, Diaphoresis , Pallor Extremities: positive: Non-tender, Full ROM, Nml appearance. negative: Calf tenderness, Amina's sign/cords Neurologic/Psychiatric: positive: Oriented x3, Motor nml, Sensation nml, Mood/ affect nml. negative: Weakness, Sensory loss, Facial droop, Slurred/abnml speech, Depressed mood/affect - Lab Results Fish Bones: 11/08/17 05:16 11/08/17 05:16 Other Labs: Lab Results x24hrs 11/08/17 11/08/17 11/07/17 Range/Units 05:16 05:16 17:09 WBC 8.1 (4.8-10.8) x10^3/uL RBC 4.38 L (4.70-6.10) 10^6/uL Hgb 12.9 L (14.0-18.0) g/dL Hct 37.3 L (42.0-52.0) % MCV 85.2 (80.0-94.0) fL MCH 29.5 (27.0-31.0) pg MCHC 34.6 (32.0-36.0) g/dL RDW 14.6 (12.0-15.0) % Plt Count 118 L (130-450) 10^3/uL MPV 7.1 L (7.4-11.4) fL Sodium 138 (135-145) mmol/L Potassium 3.3 L (3.5-5.0) mmol/L Chloride 108 (101-111) mmol/L Carbon Dioxide 23 (21-32) mmol/L Anion Gap 7.0 (6-13) BUN 20 (6-20) mg/dL Creatinine 1.1 (0.6-1.2) mg/dL Estimated GFR (MDRD) 64 L (>89) Glucose 114 H (70-100) mg/dL Lactic Acid 1.2 (0.5-2.2) mmol/L Calcium 8.9 (8.5-10.3) mg/dL Phosphorus 1.8 L (2.5-4.6) mg/dL Magnesium 2.1 (1.7-2.8) mg/dL 18 11/07/17 Range/Units 13:57 13:57 WBC (4.8-10.8) x10^3/uL RBC (4.70-6.10) 10^6/uL Hgb (14.0-18.0) g/dL Hct (42.0-52.0) % MCV (80.0-94.0) fL MCH (27.0-31.0) pg MCHC (32.0-36.0) g/dL RDW (12.0-15.0) % Plt Count (130-450) 10^3/uL MPV (7.4-11.4) fL Sodium (135-145) mmol/L Potassium 3.0 L (3.5-5.0) mmol/L Chloride (101-111) mmol/L Carbon Dioxide (21-32) mmol/L Anion Gap (6-13) BUN (6-20) mg/dL Creatinine (0.6-1.2) mg/dL Estimated GFR (MDRD) (>89) Glucose (70-100) mg/dL Lactic Acid 2.3 H (0.5-2.2) mmol/L Calcium (8.5-10.3) mg/dL Phosphorus (2.5-4.6) mg/dL Magnesium (1.7-2.8) mg/dL ABX Reporting Has patient been on IV antibiotics over the past 48 hours?: Yes Assessment/Plan - Problem List (1) Pneumonia Impression: Impression: no fever, chill, cough. WBC is down to normal, 93% Sats on room air blood culture preliminary negative continue antibiotics continue daily lab, vital monitor pt present Fever, elevated WBC, possible pneumonia. since pt continue to have fever, and WBC remain the same. Lactic acid in normal arrange switch antibiotics to Cefepim, and vancomycin blood culture pending IVF Left basilar atelectasis seen on chest x-ray, patient has a nonproductive cough and fever. He also has an elevated white count. We will start the patient on ceftriaxone and azithromycin IV, give him supplemental oxygen and bronchodilators as needed, and address any other comorbidities as needed. (2) Hypertension Conclusion/Plan: stable, continue home regime We will continue the patient on amlodipine, losartan, and his diuretics while he is in hospital. (3) Congestive heart failure Conclusion/Plan: stable, continue home regime We will continue the patient on his amlodipine, losartan, and diuretics while he is inpatient. (4) Coronary artery disease Conclusion/Plan: The patient is status post stenting. We will continue him on his daily aspirin while he is inpatient. (5) Hyperlipidemia Conclusion/Plan: Presumably well-managed, we will continue the patient on his home dosing of Lipitor while he is inpatient. (6) History of gout Conclusion/Plan: continue allopurinol No evidence of active gout at this time. We will continue the patient on allopurinol while he is inpatient. (8) Glaucoma Conclusion/Plan: We will continue the patient on dorzolamide and latanoprost while he is inpatient. (9) hypokalemia potassium is 3.3 today, continue replacement and lab and vital monitor pt continue to have potassium 2.9 after replacement of [address] Heredia's report continue replace, with PO and IV of potassium check at 1400, follow up (10) diarrhea C.Diff test negative add Florastor add Imodium PRN nurse report water-likely diarrhea. pt just begin antibiotics on yesterday afternoon PCR for c.diff, Ova/para culture IVF lab and vital monitor (11) fever resolved continue antibiotics, precaution of sepsis IVF vital monitor follow up blood culture Qualifiers: Pneumonia type: due to unspecified organism Laterality: left Lung location: lower lobe of lung Qualified Code(s): J18.1 - Lobar pneumonia, unspecified organism
[2017-11-08] MEDS: LOPERAMIDE 2 MG CAPSULE PO PRN (21:23)
[2017-11-08] MEDS: LATANOPROST 0.005% OPHTH DROPS EACHEYE SCH (21:32)
[2017-11-09] MEDS: ACETAMINOPHEN 325 MG TABLET PO PRN ×3 (00:48→18:32)
[2017-11-09] MEDS: SODIUM CHLORIDE FLUSH 0.9% 10 ML SYRINGE IVP SCH ×3 (02:15→16:36)
[2017-11-09 06:03] LABS: HGB - HEMOGLOBIN 12.7 g/dL (14.0-18.0); MEAN CORPUSCULAR HEMOGLOBIN 28.9 pg (27.0-31.0); MEAN CORPUSCULAR HGB CONC 34.1 g/dL (32.0-36.0); MEAN CORPUSCULAR VOLUME 84.7 fL (80.0-94.0); MEAN PLATELET VOLUME 7.6 fL (7.4-11.4); RED BLOOD COUNT 4.39 10^6/uL (4.70-6.10); RED CELL DISTRIBUTION WIDTH 14.6 % (12.0-15.0); WHITE BLOOD COUNT 7.1 x10^3/uL (4.8-10.8)
[2017-11-09 06:19] LABS: CREATININE 1.1 mg/dL (0.6-1.2); PHOSPHORUS 2.7 mg/dL (2.5-4.6)
[2017-11-09] MEDS ORDERED: SODIUM CHLORIDE 0.9% 1,000 ML IV SCH (08:00)
[2017-11-09] MEDS: POLYETHYLENE GLYCOL 3350 17 GM PACKET PO SCH (08:16)
[2017-11-09] MEDS: SACCHAROMYCES BOULARDII 250 MG CAPSULE PO SCH ×2 (09:22→16:42)
[2017-11-09] MEDS: ALLOPURINOL 100 MG TABLET PO SCH (09:23)
[2017-11-09] MEDS: ATORVASTATIN 10 MG TABLET PO SCH (09:23)
[2017-11-09] MEDS: TRIAMT/HCTZ 37.5 MG/25 MG CAPSULE PO SCH (09:23)
[2017-11-09] MEDS: CEFEPIME 1 GM in SODIUM CHLORIDE 0.9% MINIBAG 100 ML IV SCH ×2 (09:23→16:35)
[2017-11-09] MEDS: POTASSIUM CHLORIDE 20 MEQ TABLET PO SCH ×2 (09:23→21:30)
[2017-11-09] MEDS: amLODIPine 5 MG TABLET PO SCH (09:23)
[2017-11-09] MEDS: CETIRIZINE 10 MG TABLET PO SCH (09:23)
[2017-11-09] MEDS: ASPIRIN CHEW 81 MG TABLET PO SCH (09:23)
[2017-11-09] MEDS: LOPERAMIDE 2 MG CAPSULE PO PRN ×3 (09:30→18:33)
[2017-11-09] MEDS ORDERED: IOPAMIDOL-300 50 ML VIAL ONE (09:56)
[2017-11-09] MEDS ORDERED: IOPAMIDOL-300 100 ML VIAL ONE (09:56)
[2017-11-09 10:36] LABS: VANCOMYCIN,TROUGH 8.8 ug/mL (10.0-20.0)
[2017-11-09] MEDS: FLUTICASONE NASAL SPRAY NAS SCH (11:13)
[2017-11-09] MEDS: DORZOLAMIDE 2% OPHTH DROPS EACHEYE SCH ×2 (11:13→21:36)
[2017-11-09] MEDS: VANCOMYCIN INJ 1 GM, VANCOMYCIN INJ 500 MG in SODIUM CHLORIDE 0.9% 500 ML IV SCH (11:50)
--- NOTE | 2017-11-09 12:44 | CT Report ---
Procedure Date: 11/09/2017 Accession Number: [id number] / [id number] Procedure: CT - Abdomen/Pelvis W/ CPT Code: FULL RESULT: EXAM: CT ABDOMEN AND PELVIS EXAM DATE: 11/09/2017 12:00 PM. CLINICAL HISTORY: Generalized abdominal pain. COMPARISONS: None. TECHNIQUE: Routine helical CT imaging was performed through the abdomen and pelvis. IV contrast: 100 mL [id number]. Enteric contrast: Yes. Reconstructions: Coronal and sagittal. In accordance with CT protocol optimization, one or more of the following dose reduction techniques were utilized for this exam: automated exposure control, adjustment of mA and/or KV based on patient size, or use of iterative reconstructive technique. FINDINGS: Lung Bases: Minimal bilateral pleural effusions and compressive atelectasis is seen. Calcified coronary artery disease is present. Liver: Normal. No masses. Gallbladder/Bile Ducts: Unremarkable. Spleen: Normal. Pancreas: Normal. Adrenal Glands: Normal. Kidneys: A few small scattered cysts are seen in the kidneys. There is no nephrolithiasis or hydronephrosis. Peritoneal Cavity/Bowel: There is mild wall thickening involving the right hemicolon along with associated minor pericolonic fat stranding. Additional mild aching of the terminal ileum is also seen. Borderline prominent lymph nodes are noted in the right lower quadrant mesentery (image 58, series 3) measuring up to 10 mm in short axis diameter. There is no obstruction or ileus. Trace free fluid is seen along the right paracolic gutter. There is no free air. Scattered diverticular disease is seen mostly in the sigmoid colon without evidence of diverticulitis. Pelvic Organs: Small free fluid is seen in the dependent pelvis. There is no pelvic adenopathy or mass. Vasculature: No aneurysms or other significant abnormality. Bones: No significant abnormality. Other: None. IMPRESSION: 1. Mild wall thickening and minor surrounding fat stranding involving the terminal ileum and right hemicolon suggesting minimal to mild ileitis/colitis. Findings may be related to underlying inflammatory bowel disease. 2. Small free fluid seen in the right lower quadrant and pelvis. No free air or abscess is demonstrated. 3. Mild predominantly sigmoid diverticulosis without evidence of diverticulitis. 4. Minimal bilateral pleural effusions and compressive atelectasis. RADIA
--- NOTE | 2017-11-09 13:46 | PROVIDER PROGRESS NOTE ---
Subjective - Prog Note Date Prog Note Date: 11/09/17 - Subjective Pt reports feeling: Worse Subjective: pt report he has diffused abdominal pain, he has loose stool, pt had a fever at night. He denies CP, cough. Current Medications - Current Medications Current Medications: Active Medications Acetaminophen (Tylenol) 650 mg PO Q4HR PRN PRN Reason: Pain or Fever > 38C (100.4F) Last Admin: 11/09/17 12:08 Dose: 650 mg Hydrocodone Bitart/Acetaminophen ([place] 5/325) 1 tab PO Q4HR PRN PRN Reason: Pain 5 to 7 Last Admin: 11/08/17 03:13 Dose: 1 tab Allopurinol (Zyloprim) 100 mg PO DAILY [facility] Last Admin: 11/09/17 09:23 Dose: 100 mg Amlodipine Besylate (Norvasc) 10 mg PO DAILY [facility] Last Admin: 11/09/17 09:23 Dose: 10 mg Aspirin ([place] Aspirin) 81 mg PO DAILY [facility] Last Admin: 11/09/17 09:23 Dose: 81 mg Atorvastatin Calcium (Lipitor) 20 mg PO DAILY [facility] Last Admin: 11/09/17 09:23 Dose: 20 mg Cetirizine HCl (Zyrtec) 10 mg PO DAILY [facility] Last Admin: 11/09/17 09:23 Dose: 10 mg Dorzolamide HCl (Trusopt 2% Ophth Drops) 1 drops EACHEYE BID [facility] Last Admin: 11/09/17 11:13 Dose: 1 drops Fluticasone Propionate (Flonase) 1 sprays JOE DAILY [facility] Last Admin: 11/09/17 11:13 Dose: 1 sprays Sodium Chloride (Normal Saline 0.9%) 1,000 mls @ 83.333 mls/hr IV .Q12H [facility] Stop: 11/09/17 19:59 Last Infusion: 11/09/17 14:34 Dose: 0 mls/hr Metronidazole (Flagyl 500 Mg/100 Ml) 500 mg in 100 mls @ 100 mls/hr IV Q8HR [facility] Last Admin: 11/09/17 14:34 Dose: 100 mls/hr Cefepime HCl 1 gm/ Sodium (Chloride) 100 mls @ 200 mls/hr IV Q8H [facility] Latanoprost (Xalatan Ophth Drops) 1 drops EACHEYE QPM [facility] Last Admin: 11/08/17 21:32 Dose: 1 drops Loperamide HCl (Imodium) 2 mg PO QID PRN PRN Reason: Diarrhea Last Admin: 11/09/17 12:08 Dose: 2 mg Multi-Ingredient Ointment (Zinc Oxide) 1 applic TOP PRN PRN PRN Reason: Skin Care Polyethylene Glycol (Miralax) 17 gm PO DAILY [facility] Last Admin: 11/09/17 08:16 Dose: Not Given Potassium Chloride (K-Dur) 20 meq PO BID [facility] Last Admin: 11/09/17 09:23 Dose: 20 meq Saccharomyces Boulardii (Florastor) 500 mg PO BIDWM [facility] Last Admin: 11/09/17 09:22 Dose: 500 mg Sodium Chloride (Normal Saline Flush 0.9%) 10 ml IVP PRN PRN PRN Reason: NEEDED PER PROVIDER ORDERS Sodium Chloride (Normal Saline Flush 0.9%) 10 ml IVP 0100,0900,1700 [facility] Last Admin: 11/09/17 09:23 Dose: 10 ml Temazepam (Restoril) 15 mg PO QPM PRN PRN Reason: Insomnia Triamterene/HCTZ (Dyazide) 2 cap PO DAILY [facility] Last Admin: 11/09/17 09:23 Dose: 2 cap Aspirin 81 mg PO DAILY 01/01/16 Atorvastatin [Lipitor] 20 mg PO DAILY 01/01/16 Calcium Carbonate/Vitamin D3 [Calcium 500 + Vit D Caplet] 1 tab PO BID 01/01/16 Cetirizine [ZyrTEC] 10 mg PO DAILY 01/01/16 Dorzolamide 2% Ophth Drops [Trusopt 2% Ophth Drops] 1 drop EACHEYE BID 01/01/16 Fluticasone [Flonase] 1 spray JOE DAILY 01/01/16 Latanoprost 1 drop EACHEYE DAILY 01/01/16 Multivitamin [Multivitamins] 1 tab PO DAILY 01/01/16 Triamterene/Hydrochlorothiazid [Maxzide 75 mg-50 mg Tablet] 1 tab PO DAILY 12/31 Allopurinol 100 mg PO DAILY 11/06/17 Amlodipine Besylate 10 mg PO DAILY 11/06/17 Losartan Potassium 50 mg PO DAILY 11/06/17 Objective - Vital Signs/Intake & Output Reviewed Vital Signs: Yes Vital Signs: Vital Signs x48h Temp Pulse Resp BP Pulse Ox 11/09/17 07:36 37.0 C 67 18 132/72 H 95 Intake & Output: Intake & Output 11/06/17 11/07/17 11/08/17 11/09/17 23:59 23:59 23:59 23:59 Intake Total 536.219 1470.333 2770 1851.555 Output Total 575 Balance 570.407 9775.333 2770 1851.555 - Objective General Appearance: positive: No acute distress, Alert. negative: Lethargic Eyes Bilateral: positive: Normal inspection, PERRL, No lid inflammation, Conjunctivae nml ENT: positive: ENT inspection nml, Pharynx nml, No signs of dehydration. negative: Purulent nasal drainage, Pharyngeal erythema, Oral lesions Neck: positive: Nml inspection, Thyroid nml, No JVD, Trachea midline. negative : Thyromegaly, Lymphadenopathy (R), Lymphadenopathy (L), Stiff neck, Swelling/ bruising, Tracheal deviation Respiratory: positive: Chest non-tender, No respiratory distress, Breath sounds nml. negative: Wheezes, Rales, Rhonchi Cardiovascular: positive: Regular rate & rhythm, No murmur, No gallop. negative : Irregularly irregular, Extrasystoles, Tachycardia, Bradycardia, JVD present, Systolic murmur, Diastolic murmur Peripheral Pulses: 2+ Radial (R), 2+ Radial (L), 2+ Dorsalis pedis (R), 2+ Dorsalis pedis (L) Abdomen: positive: Non-tender, No organomegaly, No distention, Abnml bowel sounds (hyperactive bowel sound), Other. negative: Tenderness, Guarding, Rebound Back: positive: Nml inspection. negative: CVA tenderness (R), CVA tenderness (L ) Skin: positive: Color nml, No rash, Warm, Dry. negative: Cyanosis, Diaphoresis , Pallor Extremities: positive: Non-tender, Full ROM, Nml appearance. negative: Calf tenderness, Joint swelling, Amina's sign/cords Neurologic/Psychiatric: positive: Oriented x3, Motor nml, Sensation nml, Mood/ affect nml. negative: Sensory loss, Facial droop, Slurred/abnml speech, Depressed mood/affect - Lab Results Fish Bones: 11/09/17 05:52 11/09/17 05:52 Other Labs: Lab Results x24hrs 11/09/17 11/09/17 11/09/17 Range/Units 10:18 05:52 05:52 WBC 7.1 (4.8-10.8) x10^3/uL RBC 4.39 L (4.70-6.10) 10^6/uL Hgb 12.7 L (14.0-18.0) g/dL Hct 37.2 L (42.0-52.0) % MCV 84.7 (80.0-94.0) fL MCH 28.9 (27.0-31.0) pg MCHC 34.1 (32.0-36.0) g/dL RDW 14.6 (12.0-15.0) % Plt Count 137 (130-450) 10^3/uL MPV 7.6 (7.4-11.4) fL Sodium 135 (135-145) mmol/L Potassium 3.5 (3.5-5.0) mmol/L Chloride 108 (101-111) mmol/L Carbon Dioxide 21 (21-32) mmol/L Anion Gap 6.0 (6-13) BUN 20 (6-20) mg/dL Creatinine 1.1 (0.6-1.2) mg/dL Estimated GFR (MDRD) 64 L (>89) Glucose 113 H (70-100) mg/dL Calcium 9.0 (8.5-10.3) mg/dL Phosphorus 2.7 (2.5-4.6) mg/dL Last Dose Date 11/08/17 Last Dose Time 1343 Vancomycin Trough 8.8 L (10.0-20.0) ug/mL ABX Reporting Has patient been on IV antibiotics over the past 48 hours?: Yes Assessment/Plan - Problem List (1) Pneumonia Impression: 11/09 pt report some SOB. repeat CXR, follow up continue antibiotics no fever, chill, cough. WBC is down to normal, 93% Sats on room air blood culture preliminary negative continue antibiotics continue daily lab, vital monitor pt present Fever, elevated WBC, possible pneumonia. since pt continue to have fever, and WBC remain the same. Lactic acid in normal arrange switch antibiotics to Cefepim, and vancomycin blood culture pending IVF Left basilar atelectasis seen on chest x-ray, patient has a nonproductive cough and fever. He also has an elevated white count. We will start the patient on ceftriaxone and azithromycin IV, give him supplemental oxygen and bronchodilators as needed, and address any other comorbidities as needed. (2) abdominal pain 11/09. CT of abdomen reveals mild colitis, finding may be related to underlying inflammatory bowel disease add Flagyl, consult with pharmacy, continue Cefepime Prednisone for inflammatory bowel disease IVF NS (3) Hypertension Conclusion/Plan: stable, continue home regime We will continue the patient on amlodipine, losartan, and his diuretics while he is in hospital. (4) Congestive heart failure Conclusion/Plan: 11/09 ECHO reveals EF 60-65%, continue amlodipine, losartan, and diuretics while he is inpatient. stable, continue home regime We will continue the patient on his amlodipine, losartan, and diuretics while he is inpatient. (5) Coronary artery disease Conclusion/Plan: The patient is status post stenting. We will continue him on his daily aspirin while he is inpatient. (6) Hyperlipidemia Conclusion/Plan: Presumably well-managed, we will continue the patient on his home dosing of Lipitor while he is inpatient. (7) History of gout Conclusion/Plan: continue allopurinol No evidence of active gout at this time. We will continue the patient on allopurinol while he is inpatient. (8) Glaucoma Conclusion/Plan: We will continue the patient on dorzolamide and latanoprost while he is inpatient. (9) hypokalemia 11/09 potassium is 3.5, normal continue bid potassium, daily lab check potassium is 3.3 today, continue replacement and lab and vital monitor pt continue to have potassium 2.9 after replacement of [address] Heredia's report continue replace, with PO and IV of potassium check at 1400, follow up (10) diarrhea 11/09, loose stool but no diarrhea CT of abdomen reveals colitis treat with antibiotics Florastor, Imodium PRN C.Diff test negative add Florastor add Imodium PRN nurse report water-likely diarrhea. pt just begin antibiotics on yesterday afternoon PCR for c.diff, Ova/para culture IVF lab and vital monitor (11) fever 11/09, one spot of fever at 38.1 at night, CT of abdomen reveal colitis, possible inflammatory disease treat antibiotics and prednisone vital monitor IVF lab monitor resolved continue antibiotics, precaution of sepsis IVF vital monitor follow up blood culture Qualifiers: Pneumonia type: due to unspecified organism Laterality: left Lung location: lower lobe of lung Qualified Code(s): J18.1 - Lobar pneumonia, unspecified organism
[2017-11-09] MEDS: metroNIDAZOLE 500 MG/100 ML 500 MG/100 ML BAG IV SCH ×2 (14:34→21:34)
[2017-11-09] MEDS ORDERED: CIPROFLOXACIN 400 MG/200 ML 200 ML IV SCH (15:00)
[2017-11-09] MEDS ORDERED: IOPAMIDOL-300 100 ML VIAL IVP ONE (15:31)
[2017-11-09] MEDS ORDERED: IOPAMIDOL-300 50 ML VIAL PO ONE (15:31)
[2017-11-09] MEDS: predniSONE 20 MG TABLET PO SCH (18:33)
--- NOTE | 2017-11-09 20:04 | XRAY Report ---
Procedure Date: 11/09/2017 Accession Number: [id number] / [id number] Procedure: XR - Chest 1 View X-Ray CPT Code: 34975 FULL RESULT: EXAM: CHEST RADIOGRAPHY EXAM DATE: 11/09/2017 06:32 PM. CLINICAL HISTORY: SOB. COMPARISON: 11/06/2017. TECHNIQUE: 1 view. FINDINGS: Lungs/Pleura: Mild interstitial prominence. No localized infiltrate, consolidation, effusion, or pneumothorax. Mediastinum: Within exam limitations, the cardiomediastinal contour is normal. Upper lobe vessels not distended. Other: Osteopenia, degenerative changes. Cannot exclude lytic lesion in right humeral neck. IMPRESSION: 1. No acute disease. 2. Possible right humeral neck lytic lesion versus artifact. Dedicated shoulder radiographs are recommended. [facility]
[2017-11-09] MEDS: LATANOPROST 0.005% OPHTH DROPS EACHEYE SCH (21:30)
[2017-11-10] MEDS: CEFEPIME 1 GM in SODIUM CHLORIDE 0.9% MINIBAG 100 ML IV SCH ×3 (01:39→18:08)
[2017-11-10] MEDS: ACETAMINOPHEN 325 MG TABLET PO PRN (04:33)
[2017-11-10] MEDS: metroNIDAZOLE 500 MG/100 ML 500 MG/100 ML BAG IV SCH ×3 (05:00→20:49)
[2017-11-10 05:38] LABS: HGB - HEMOGLOBIN 12.1 g/dL (14.0-18.0); MEAN CORPUSCULAR HEMOGLOBIN 29.1 pg (27.0-31.0); MEAN CORPUSCULAR HGB CONC 34.5 g/dL (32.0-36.0); MEAN CORPUSCULAR VOLUME 84.4 fL (80.0-94.0); MEAN PLATELET VOLUME 7.6 fL (7.4-11.4); RED BLOOD COUNT 4.16 10^6/uL (4.70-6.10); RED CELL DISTRIBUTION WIDTH 14.5 % (12.0-15.0)
[2017-11-10 05:50] LABS: CALCIUM 9.3 mg/dL (8.5-10.3)
[2017-11-10] MEDS: SODIUM CHLORIDE FLUSH 0.9% 10 ML SYRINGE IVP SCH ×3 (06:56→18:08)
--- NOTE | 2017-11-10 10:09 | CT Report ---
Procedure Date: 11/10/2017 Accession Number: [id number] / [id number] Procedure: CT - Upper Extremity Right W/O CPT Code: FULL RESULT: EXAM: RIGHT CLAVICLE/STERNOCLAVICULAR JOINT CT WITHOUT CONTRAST EXAM DATE: 11/10/2017 09:25 AM. CLINICAL HISTORY: Possible right humeral neck lytic lesion. COMPARISON: 11/09/2017 chest radiographs. TECHNIQUE: Thin-section axial images were acquired of the clavicle(s)/sternoclavicular joint(s) without contrast. Post-processing: Coronal and sagittal reformats. Other: None. In accordance with CT protocol optimization, one or more of the following dose reduction techniques were utilized for this exam: automated exposure control, adjustment of mA and/or KV based on patient size, or use of iterative reconstructive technique. FINDINGS: Bones: No fractures. No osseous lesions. There is osseous irregularity at the footprint of the supraspinatus tendon on the greater tuberosity. Bulky bridging right-sided anterior marginal osteophytes in the spine likely reflect diffuse idiopathic skeletal hyperostosis. 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 Musculature: Normal. No fatty atrophy. Other: Trace right pleural effusion. Otherwise clear right lung.. No nodules or masses in the right lung. IMPRESSION: 1. No osseous lesions in the right proximal humerus. The queried lucent lesion is likely artifact. 2. 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 3. Trace right pleural effusion. No nodules or masses. No focal consolidation in the right lung. [facility]
--- NOTE | 2017-11-10 10:25 | PROVIDER PROGRESS NOTE ---
Subjective - Prog Note Date Prog Note Date: 11/10/17 - Subjective Pt reports feeling: Improved Subjective: pt report his abdominal pain is controlled and reduced loose stool. No fever, chill, CP, SOB. plan to be d/c tomorrow if pt continue to improve Current Medications - Current Medications Current Medications: Active Medications Acetaminophen (Tylenol) 650 mg PO Q4HR PRN PRN Reason: Pain or Fever > 38C (100.4F) Last Admin: 11/10/17 04:33 Dose: 650 mg Hydrocodone Bitart/Acetaminophen ([place] 5/325) 1 tab PO Q4HR PRN PRN Reason: Pain 5 to 7 Last Admin: 11/08/17 03:13 Dose: 1 tab Allopurinol (Zyloprim) 100 mg PO DAILY [facility] Last Admin: 11/10/17 10:29 Dose: 100 mg Amlodipine Besylate (Norvasc) 10 mg PO DAILY [facility] Last Admin: 11/10/17 10:29 Dose: 10 mg Aspirin ([place] Aspirin) 81 mg PO DAILY [facility] Last Admin: 11/10/17 10:29 Dose: 81 mg Atorvastatin Calcium (Lipitor) 20 mg PO DAILY [facility] Last Admin: 11/10/17 10:29 Dose: 20 mg Cetirizine HCl (Zyrtec) 10 mg PO DAILY [facility] Last Admin: 11/10/17 10:30 Dose: 10 mg Dorzolamide HCl (Trusopt 2% Ophth Drops) 1 drops EACHEYE BID [facility] Last Admin: 11/10/17 10:32 Dose: 1 drops Fluticasone Propionate (Flonase) 1 sprays JOE DAILY [facility] Last Admin: 11/10/17 10:32 Dose: 1 sprays Metronidazole (Flagyl 500 Mg/100 Ml) 500 mg in 100 mls @ 100 mls/hr IV Q8HR [facility] Last Infusion: 11/10/17 06:00 Dose: Infused Cefepime HCl 1 gm/ Sodium (Chloride) 100 mls @ 200 mls/hr IV Q8H [facility] Last Infusion: 11/10/17 11:03 Dose: Infused Latanoprost (Xalatan Ophth Drops) 1 drops EACHEYE QPM [facility] Last Admin: 11/09/17 21:30 Dose: 1 drops Loperamide HCl (Imodium) 2 mg PO QID PRN PRN Reason: Diarrhea Last Admin: 11/10/17 10:30 Dose: 2 mg Multi-Ingredient Ointment (Zinc Oxide) 1 applic TOP PRN PRN PRN Reason: Skin Care Potassium Chloride (K-Dur) 20 meq PO BID [facility] Last Admin: 11/10/17 10:30 Dose: 20 meq Prednisone (Deltasone) 20 mg PO DAILYWM [facility] Saccharomyces Boulardii (Florastor) 500 mg PO BIDWM [facility] Last Admin: 11/10/17 10:29 Dose: 500 mg Sodium Chloride (Normal Saline Flush 0.9%) 10 ml IVP PRN PRN PRN Reason: NEEDED PER PROVIDER ORDERS Sodium Chloride (Normal Saline Flush 0.9%) 10 ml IVP 0100,0900,1700 [facility] Last Admin: 11/10/17 10:33 Dose: 10 ml Temazepam (Restoril) 15 mg PO QPM PRN PRN Reason: Insomnia Triamterene/HCTZ (Dyazide) 2 cap PO DAILY [facility] Last Admin: 11/10/17 10:29 Dose: 2 cap Aspirin 81 mg PO DAILY 01/01/16 Atorvastatin [Lipitor] 20 mg PO DAILY 01/01/16 Calcium Carbonate/Vitamin D3 [Calcium 500 + Vit D Caplet] 1 tab PO BID 01/01/16 Cetirizine [ZyrTEC] 10 mg PO DAILY 01/01/16 Dorzolamide 2% Ophth Drops [Trusopt 2% Ophth Drops] 1 drop EACHEYE BID 01/01/16 Fluticasone [Flonase] 1 spray JOE DAILY 01/01/16 Latanoprost 1 drop EACHEYE DAILY 01/01/16 Multivitamin [Multivitamins] 1 tab PO DAILY 01/01/16 Triamterene/Hydrochlorothiazid [Maxzide 75 mg-50 mg Tablet] 1 tab PO DAILY 12/31 Allopurinol 100 mg PO DAILY 11/06/17 Amlodipine Besylate 10 mg PO DAILY 11/06/17 Losartan Potassium 50 mg PO DAILY 11/06/17 Objective - Vital Signs/Intake & Output Reviewed Vital Signs: Yes Vital Signs: Vital Signs x48h Temp Pulse Resp BP Pulse Ox 11/10/17 07:59 36.4 C L 63 20 119/66 94 Intake & Output: Intake & Output 11/07/17 11/08/17 11/09/1718 23:59 23:59 23:59 23:59 Intake Total 3454.333 2770 4075.331 1341.669 Output Total 547 506 6461 Balance 2879.333 2770 3700.331 156.669 - Objective General Appearance: positive: No acute distress, Alert. negative: Lethargic Eyes Bilateral: positive: Normal inspection, PERRL, No lid inflammation, Conjunctivae nml ENT: positive: ENT inspection nml, Pharynx nml, No signs of dehydration. negative: Purulent nasal drainage, Pharyngeal erythema, Oral lesions Neck: positive: Nml inspection, Thyroid nml, No JVD, Trachea midline. negative : Thyromegaly, Lymphadenopathy (R), Lymphadenopathy (L), Stiff neck, Carotid bruit, Swelling/bruising, Tracheal deviation Respiratory: positive: Chest non-tender, No respiratory distress, Breath sounds nml. negative: Wheezes, Rales, Rhonchi Cardiovascular: positive: Regular rate & rhythm, No murmur, No gallop. negative : Irregularly irregular, Extrasystoles, Tachycardia, Bradycardia, Systolic murmur, Diastolic murmur Peripheral Pulses: 2+ Radial (R), 2+ Radial (L), 2+ Dorsalis pedis (R), 2+ Dorsalis pedis (L) Abdomen: positive: Non-tender, No organomegaly, Nml bowel sounds, No distention. negative: Tenderness, Guarding, Rebound Back: positive: Nml inspection. negative: CVA tenderness (R), CVA tenderness (L ) Skin: positive: Color nml, No rash, Warm, Dry. negative: Cyanosis, Diaphoresis , Pallor Extremities: positive: Non-tender, Full ROM, Nml appearance. negative: Calf tenderness, Joint swelling, Amina's sign/cords Neurologic/Psychiatric: positive: Oriented x3, Motor nml, Sensation nml, Mood/ affect nml. negative: Sensory loss, Facial droop, Slurred/abnml speech, Depressed mood/affect - Lab Results Fish Bones: 11/10/17 05:20 11/10/17 05:20 Other Labs: Lab Results x24hrs 11/10/17 11/10/17 11/10/17 Range/Units 05:20 05:20 05:20 WBC 5.0 (4.8-10.8) x10^3/uL RBC 4.16 L (4.70-6.10) 10^6/uL Hgb 12.1 L (14.0-18.0) g/dL Hct 35.1 L (42.0-52.0) % MCV 84.4 (80.0-94.0) fL MCH 29.1 (27.0-31.0) pg MCHC 34.5 (32.0-36.0) g/dL RDW 14.5 (12.0-15.0) % Plt Count 158 (130-450) 10^3/uL MPV 7.6 (7.4-11.4) fL ESR 34 H (0-20) mm/Hr Sodium 140 (135-145) mmol/L Potassium 4.1 (3.5-5.0) mmol/L Chloride 109 (101-111) mmol/L Carbon Dioxide 22 (21-32) mmol/L Anion Gap 9.0 (6-13) BUN 15 (6-20) mg/dL Creatinine 1.0 (0.6-1.2) mg/dL Estimated GFR (MDRD) 71 L (>89) Glucose 174 H (70-100) mg/dL Calcium 9.3 (8.5-10.3) mg/dL C-Reactive Protein 9.0 H (0-1.0) mg/dL Last Dose Date Last Dose Time Vancomycin Trough (10.0-20.0) ug/mL Ova & Parasites 11/09/17 11/07/17 Range/Units 10:18 12:59 WBC (4.8-10.8) x10^3/uL RBC (4.70-6.10) 10^6/uL Hgb (14.0-18.0) g/dL Hct (42.0-52.0) % MCV (80.0-94.0) fL MCH (27.0-31.0) pg MCHC (32.0-36.0) g/dL RDW (12.0-15.0) % Plt Count (130-450) 10^3/uL MPV (7.4-11.4) fL ESR (0-20) mm/Hr Sodium (135-145) mmol/L Potassium (3.5-5.0) mmol/L Chloride (101-111) mmol/L Carbon Dioxide (21-32) mmol/L Anion Gap (6-13) BUN (6-20) mg/dL Creatinine (0.6-1.2) mg/dL Estimated GFR (MDRD) (>89) Glucose (70-100) mg/dL Calcium (8.5-10.3) mg/dL C-Reactive Protein (0-1.0) mg/dL Last Dose Date 11/08/17 Last Dose Time 1343 Vancomycin Trough 8.8 L (10.0-20.0) ug/mL Ova & Parasites SEE NOTE ABX Reporting Has patient been on IV antibiotics over the past 48 hours?: Yes Assessment/Plan - Problem List (1) Pneumonia Impression: Impression: 11/10, no acute finding in the new CXR. pt clinically improved. no fever more, or chill. WBC to normal 11/09 pt report some SOB. repeat CXR, follow up continue antibiotics no fever, chill, cough. WBC is down to normal, 93% Sats on room air blood culture preliminary negative continue antibiotics continue daily lab, vital monitor pt present Fever, elevated WBC, possible pneumonia. since pt continue to have fever, and WBC remain the same. Lactic acid in normal arrange switch antibiotics to Cefepim, and vancomycin blood culture pending IVF Left basilar atelectasis seen on chest x-ray, patient has a nonproductive cough and fever. He also has an elevated white count. We will start the patient on ceftriaxone and azithromycin IV, give him supplemental oxygen and bronchodilators as needed, and address any other comorbidities as needed. (2) abdominal pain 11/10, abdominal pain improved, diarrhea is controlled, plan to d/c tomorrow if continue to improve continue antibiotic reduce to 20 mg prednisone for inflammatory bowel disease per CT image study of abdomen 11/09. CT of abdomen reveals mild colitis, finding may be related to underlying inflammatory bowel disease add Flagyl, consult with pharmacy, continue Cefepime Prednisone for inflammatory bowel disease IVF NS (3) Hypertension Conclusion/Plan: stable, continue home regime We will continue the patient on amlodipine, losartan, and his diuretics while he is in hospital. (4) Congestive heart failure Conclusion/Plan: 11/09 ECHO reveals EF 60-65%, continue amlodipine, losartan, and diuretics while he is inpatient. stable, continue home regime We will continue the patient on his amlodipine, losartan, and diuretics while he is inpatient. (5) Coronary artery disease Conclusion/Plan: The patient is status post stenting. We will continue him on his daily aspirin while he is inpatient. (6) Hyperlipidemia Conclusion/Plan: Presumably well-managed, we will continue the patient on his home dosing of Lipitor while he is inpatient. (7) History of gout Conclusion/Plan: continue allopurinol No evidence of active gout at this time. We will continue the patient on allopurinol while he is inpatient. (8) Glaucoma Conclusion/Plan: We will continue the patient on dorzolamide and latanoprost while he is inpatient. (9) hypokalemia 11/10 resolved, normal potassium 11/09 potassium is 3.5, normal continue bid potassium, daily lab check potassium is 3.3 today, continue replacement and lab and vital monitor pt continue to have potassium 2.9 after replacement of [address] Hreedia's report continue replace, with PO and IV of potassium check at 1400, follow up (10) diarrhea 11/10, reduced loose stool compared before. C.diff negative continue antibiotics daily lab mild hydration 11/09, loose stool but no diarrhea CT of abdomen reveals colitis treat with antibiotics Florastor, Imodium PRN C.Diff test negative add Florastor add Imodium PRN nurse report water-likely diarrhea. pt just begin antibiotics on yesterday afternoon PCR for c.diff, Ova/para culture IVF lab and vital monitor (11) fever 11/10 resolved pt had 96 hours inpt. Pt developed new complaint of abdominal pain, diarrhea, and has diagnosis of colitis. plan to d/c tomorrow if continue to improve Qualifiers: Pneumonia type: due to unspecified organism Laterality: left Lung location: lower lobe of lung Qualified Code(s): J18.1 - Lobar pneumonia, unspecified organism
[2017-11-10] MEDS: TRIAMT/HCTZ 37.5 MG/25 MG CAPSULE PO SCH (10:29)
[2017-11-10] MEDS: SACCHAROMYCES BOULARDII 250 MG CAPSULE PO SCH ×2 (10:29→18:07)
[2017-11-10] MEDS: amLODIPine 5 MG TABLET PO SCH (10:29)
[2017-11-10] MEDS: ATORVASTATIN 10 MG TABLET PO SCH (10:29)
[2017-11-10] MEDS: ALLOPURINOL 100 MG TABLET PO SCH (10:29)
[2017-11-10] MEDS: ASPIRIN CHEW 81 MG TABLET PO SCH (10:29)
[2017-11-10] MEDS: CETIRIZINE 10 MG TABLET PO SCH (10:30)
[2017-11-10] MEDS: LOPERAMIDE 2 MG CAPSULE PO PRN (10:30)
[2017-11-10] MEDS: POTASSIUM CHLORIDE 20 MEQ TABLET PO SCH ×2 (10:30→20:49)
[2017-11-10] MEDS: predniSONE 20 MG TABLET PO SCH (10:30)
[2017-11-10] MEDS: DORZOLAMIDE 2% OPHTH DROPS EACHEYE SCH ×2 (10:32→20:49)
[2017-11-10] MEDS: FLUTICASONE NASAL SPRAY NAS SCH (10:32)
[2017-11-10] MEDS: SODIUM CHLORIDE 0.9% 1,000 ML IV SCH (14:26)
[2017-11-10] MEDS: LATANOPROST 0.005% OPHTH DROPS EACHEYE SCH (20:49)
[2017-11-11] MEDS: LOPERAMIDE 2 MG CAPSULE PO PRN ×2 (00:05→08:15)
[2017-11-11] MEDS: CEFEPIME 1 GM in SODIUM CHLORIDE 0.9% MINIBAG 100 ML IV SCH ×2 (01:55→08:18)
[2017-11-11] MEDS: SODIUM CHLORIDE FLUSH 0.9% 10 ML SYRINGE IVP SCH ×2 (02:49→13:52)
[2017-11-11] MEDS: metroNIDAZOLE 500 MG/100 ML 500 MG/100 ML BAG IV SCH ×2 (06:02→14:20)
[2017-11-11] MEDS ORDERED: predniSONE 20 MG TABLET PO SCH (08:00)
[2017-11-11] MEDS: SODIUM CHLORIDE 0.9% 1,000 ML IV SCH (08:12)
[2017-11-11] MEDS: ASPIRIN CHEW 81 MG TABLET PO SCH (08:14)
[2017-11-11] MEDS: ATORVASTATIN 10 MG TABLET PO SCH (08:14)
[2017-11-11] MEDS: amLODIPine 5 MG TABLET PO SCH (08:14)
[2017-11-11] MEDS: CETIRIZINE 10 MG TABLET PO SCH (08:14)
[2017-11-11] MEDS: ALLOPURINOL 100 MG TABLET PO SCH (08:15)
[2017-11-11] MEDS: TRIAMT/HCTZ 37.5 MG/25 MG CAPSULE PO SCH (08:15)
[2017-11-11] MEDS: SACCHAROMYCES BOULARDII 250 MG CAPSULE PO SCH (08:16)
[2017-11-11] MEDS: POTASSIUM CHLORIDE 20 MEQ TABLET PO SCH (08:16)
[2017-11-11] MEDS: DORZOLAMIDE 2% OPHTH DROPS EACHEYE SCH (08:17)
[2017-11-11] MEDS: FLUTICASONE NASAL SPRAY NAS SCH (08:18)
[2017-11-11 08:22] VITALS: BP 124/69
--- NOTE | 2017-11-11 12:01 | Discharge Plan ---
Discharge Plan Disposition: Home, Self Care Condition: Good Prescriptions: levoFLOXacin [Levofloxacin] 500 mg PO DAILY #10 tablet Loperamide [Imodium] 2 mg PO QID PRN #20 capsule PRN Reason: Diarrhea predniSONE [Prednisone] 5 mg PO DAILY 6 Days #9 tab.ds.pk Saccharomyces Boulardii [Florastor] 250 mg PO BID 20 Days #40 capsule Diet: Regular Activity Restrictions: No Restrictions Shower Restrictions: No Driving Restrictions: No Weight Bearing: Full Weight Instruction Topics: Diarrhea, Pneumonia Dc Additional Instructions or Follow Up instructions: You were admitted for pneumonia. You were found to have a fever, elevated white blood cell count, and generalized fatigue/illness. The chest x-ray confirmed this and you were treated with IV antibiotics. You soon had diarrhea and abdominal pain, so some stool tests were completed and so far negative. An abdominal CT was done that showed colitis ( inflammation of the bowels). The pain seemed to subside and the diarrhea is slowly improving. Continue oral antibiotics with a probiotic. Try to space those out from each other. Continue your steroid taper to keep your airway clear and help you cough up extra mucous from your lungs. Keep doing the incentive spirometry at home. See your PCP within one week. No Smoking: If you smoke, Please STOP! Call for help. Follow-up with: Lori Arias MD [Primary Care Provider] -
--- NOTE | 2017-11-11 12:06 | DISCHARGE SUMMARY ---
Discharge Summary Admit Date: 11/06/17 Discharge Date: 11/11/17 Discharging Provider: JOSE EDUARDO Szymanski Primary Care Provider: Lori Arias Code Status: Attempt Resuscitation Condition at Discharge: Good Discharge Disposition: 01 Home, Self Care - DIAGNOSES Admission Diagnoses: Pneumonia, unspecified organism (J18.9) Essential (primary) hypertension (I10) Heart failure, unspecified (I50.9) Hyperlipidemia, unspecified (E78.5) Atherosclerotic heart disease of [place] coronary artery without angina pectoris (I25.10) Personal history of other diseases of the musculoskeletal system and connective tissue (Z87.39) Unspecified glaucoma (H40.9) Discharge Diagnoses with Status of Each Condition: Left lower lobe pneumonia (J18.1) new on this admit, treatment to continue. JON on CPAP (G47.33) chronic, stable. Essential hypertension (I10) -chronic, stable. CAD (coronary artery disease) (I25.10) chronic, stable. Gout (M10.9) -chronic, stable. Acute colitis (K52.9) -new on this admit, treatment to continue with anti- diarrheal meds. Hyperlipidemia (E78.5) -chronic, stable. Diarrhea (R19.7) -new on this admit, improved. Pulmonary hypertension due to sleep-disordered breathing (I27.29) -chronic, stable. Spironolactone is indicated. - HPI History of Present Illness: Osvaldo Kelley is a pleasant 87-year-old white male with a past medical history of JON-CPAP at home, hypertension, CHF, CAD, hyperlipidemia, gout, heart murmur, and chronic DJD bilateral knees. Prior to admission, he states that he was in his normal state of health and enjoyed an evening meal with his of which he is the care provider for. Upon awakening, he claims that he that he could not get out of bed. He went back to sleep and when he realized that he was not getting better, and in fact became even worse he decided to come to the emergency department. Upon arrival to the ED imaging indicated a left lower lobe pneumonia. He was found to be febrile with a temp max of 38 C, elevated WBC of 12.2, profound fatigue and a cough. He was admitted to inpatient, placed on IV antibiotics, supplemental oxygen, and bronchodilators. He has brought his home CPAP, which will be continued while inpatient. - HOSPITAL COURSE Hospital Course: The following diagnoses were prevalent during this hospital stay: (1) Pneumonia Upon admission, the patient was found to have left lobe pneumonia and was started on Cepfepime, and vancomycin. Blood cultures x2 were obtained that remain no growth to date. He was given IVFs, a probiotic and respiratory care. WBCs upon admission were elevated to 12.2, that were down to 5.0 at the time of discharge. The patient was given another 10-day course of oral Levofloxacin with a probiotic upon discharge. (2) abdominal pain The patient developed abdominal pain accompanied by extreme diarrhea around 24 hours after starting IV antibiotics. He was started on oral prednisone for inflammatory bowel disease and colitis per CT image study of abdomen, and this was continued out patient to be tapered down. He was also given a probiotic and Imodium for symptoms. (3) Hypertension The patient is prescribed amlodipine, losartan, and trim/HCTZ at home, which was continued in the hospital. Blood pressures have been as low as 95/60 at the time of admission, but normalized to 110's over 70's upon discharge. (4) Congestive heart failure An ECHO completed on 11/09/17 reveals EF 60-65%. The patient was noted to be in atrial fibrillation. Mild mitral regurg, moderate tricuspid regurg, and moderate abnormal right heart pressures with an RVSP at rest of 59 mm Hg. The patient's amlodipine, losartan, and diuretics were continued. We suggest starting Spironolactone as an out patient. (5) Coronary artery disease The patient is status post stenting. We will continue him on his daily aspirin while he is inpatient. A systolic murmur is present upon exam. (6) Hyperlipidemia The patient takes Lipitor at home, which was continued while he was inpatient. He had normal LFTs while here. (7) History of gout continue allopurinolNo evidence of active gout at this time. We will continue the patient on allopurinol while he is inpatient. (8) Glaucoma The patient was continued on dorzolamide and latanoprost while inpatient. (9) hypokalemia Upon admission the patient was noted to have a severely low potassium of 2.8, that slowly improved to 4.1 upon discharge. He was given gentle IVFs and PO supplements. This was likely a compbination of acute illness, and poor PO intake. (10) diarrhea Soon after intiation of IV antibiotics, the patient had relentless episodes of liquid diarrhea. A C.diff PCR was negative, other stool testing is negative including shiga, etc. The patient was continued on the IV antibiotics, started on a probiotic, and prescribed, Imodium PRN. Imaging revealed a colitis with chronic diverticulosis. (11) fever The patient was found to have a temp max of 39.1 during his stay and was normal for greater than 48 hours prior to discharge. This is thought to be resolved. Disposition: The patient was very anxious to return home and continue taking care of his . He had improved overall condition and was clear on continuing the antibiotic, steroid and a probiotic. - ALLERGIES Allergies/Adverse Reactions: Allergies Allergy/AdvReac Type Severity Reaction Status Date / Time clopidogrel bisulfate * Allergy Rash Verified 11/06/17 18:20 [From Plavix] - MEDICATIONS Home Medications: Ambulatory Orders Medication Instructions Recorded Confirmed Aspirin 81 mg PO DAILY 01/01/16 11/07/17 Atorvastatin [Lipitor] 20 mg PO DAILY 01/01/16 11/06/17 Calcium Carbonate/Vitamin D3 1 tab PO BID 01/01/16 11/06/17 [Calcium 500 + Vit D Caplet] Cetirizine [ZyrTEC] 10 mg PO DAILY 01/01/16 11/07/17 Dorzolamide 2% Ophth Drops 1 drop EACHEYE BID 01/01/16 11/06/17 [Trusopt 2% Ophth Drops] Fluticasone [Flonase] 1 spray JOE DAILY 01/01/16 11/06/17 Latanoprost 1 drop EACHEYE DAILY 01/01/16 11/06/17 Multivitamin [Multivitamins] 1 tab PO DAILY 01/01/16 11/06/17 Triamterene/Hydrochlorothiazid 1 tab PO DAILY 01/01/16 11/06/17 [Maxzide 75 mg-50 mg Tablet] Allopurinol 100 mg PO DAILY 11/06/17 11/07/17 Amlodipine Besylate 10 mg PO DAILY 11/06/17 11/07/17 Losartan Potassium 50 mg PO DAILY 11/06/17 11/07/17 Loperamide [Imodium] 2 mg PO QID PRN #20 capsule 06/21/18 Saccharomyces Boulardii [Florastor] 250 mg PO BID 20 Days #40 capsule 11/11/17 levoFLOXacin [Levofloxacin] 500 mg PO DAILY #10 tablet 11/11/17 predniSONE [Prednisone] 5 mg PO DAILY 6 Days #9 tab.ds.pk 11/11/17 - PHYSICAL EXAM AT DISCHARGE General Appearance: positive: No acute distress, Alert, Mild distress Eyes Bilateral: positive: Normal inspection, PERRL ENT: positive: ENT inspection nml, Pharynx nml, No signs of dehydration Neck: positive: Nml inspection, Thyroid nml, No JVD, Trachea midline Respiratory: positive: Chest non-tender, No respiratory distress, Other ( scattered crackles bilaterally.) Cardiovascular: positive: Regular rate & rhythm, Systolic murmur Peripheral Pulses: positive: 2+ Abdomen: positive: Non-tender, Nml bowel sounds, Other (rounded, firm.) Back: positive: Nml inspection Skin: positive: No rash, Warm, Dry Extremities: positive: Non-tender, Full ROM, Pedal edema (+1 dependent BLE), Joint swelling (chronic knee swelling.) Neurologic/Psychiatric: positive: Oriented x3, CN's nml (2-12), Motor nml, Sensation nml, Weakness, Depressed mood/affect Reflexes: Bicep (R): 3+, Bicep (L): 3+ - LABS Result Diagrams: 11/10/17 05:20 11/10/17 05:20 - DIAGNOSTIC IMAGING Diagnostic Imaging Results: Final report reviewed Diagnostic Imaging Results Comments: 11/06/17 chest x-ray IMPRESSION: Trace left basilar atelectasis. 11/06/17: Head CT indicated for Fall with presumed head injury: IMPRESSION: 1. No acute intracranial abnormality is identified. 2. No acute fracture. 3. Parenchymal volume loss and chronic white matter changes. 4. Right frontal and right periorbital soft tissue edema. 11/09/17 Abdominal/Pelvis CT: IMPRESSION: 1. Mild wall thickening and minor surrounding fat stranding involving the terminal ileum and right hemicolon suggesting minimal to mild ileitis/colitis. Findings may be related to underlying inflammatory bowel disease. 2. Small free fluid seen in the right lower quadrant and pelvis. No free air or abscess is demonstrated. 3. Mild predominantly sigmoid diverticulosis without evidence of diverticulitis. 4. Minimal bilateral pleural effusions and compressive atelectasis. Chest x-ray 11/09/17: IMPRESSION: 1. No acute disease. 2. Possible right humeral neck lytic lesion versus artifact. Dedicated shoulder radiographs are recommended. - FOLLOW UP Follow Up: Disposition: Home, Self Care Condition: Good Prescriptions: levoFLOXacin [Levofloxacin] 500 mg PO DAILY #10 tablet Loperamide [Imodium] 2 mg PO QID PRN #20 capsule PRN Reason: Diarrhea predniSONE [Prednisone] 5 mg PO DAILY 6 Days #9 tab.ds.pk Saccharomyces Boulardii [Florastor] 250 mg PO BID 20 Days #40 capsule Diet: Regular Activity Restrictions: No Restrictions Shower Restrictions: No Driving Restrictions: No Weight Bearing: Full Weight Instruction Topics: Diarrhea, Pneumonia Dc Additional Instructions or Follow Up instructions: You were admitted for pneumonia. You were found to have a fever, elevated white blood cell count, and generalized fatigue/illness. The chest x-ray confirmed this and you were treated with IV antibiotics. You soon had diarrhea and abdominal pain, so some stool tests were completed and so far negative. An abdominal CT was done that showed colitis ( inflammation of the bowels). The pain seemed to subside and the diarrhea is slowly improving. Continue oral antibiotics with a probiotic. Try to space those out from each other. Continue your steroid taper to keep your airway clear and help you cough up extra mucous from your lungs. Keep doing the incentive spirometry at home. See your PCP within one week. - TIME SPENT Time Spent in Discharge (Minutes): 50
== END 2017-11-11 14:52 | disposition home or self-care (01) | DRG 194 ==
LOC: EDUNIT# → ED 18:15 → MS2 20:05
PROVIDERS: ADMIT Hospitalist; ATTEND Nurse Practitioner
DX: J18.1 Lobar pneumonia, unspecified organism (principal); K52.1 Toxic gastroenteritis and colitis; R09.02 Hypoxemia; E87.6 Hypokalemia; E86.0 Dehydration; T36.1X5A Adverse effect of cephalosporins and other beta-lactam antibiotics, initial encounter; T36.3X5A Adverse effect of macrolides, initial encounter; Y92.230 Patient room in hospital as the place of occurrence of the external cause; I11.0 Hypertensive heart disease with heart failure; I50.9 Heart failure, unspecified; E78.5 Hyperlipidemia, unspecified; I25.10 Atherosclerotic heart disease of native coronary artery without angina pectoris; I27.23 Pulmonary hypertension due to lung diseases and hypoxia; I48.91 Unspecified atrial fibrillation; I08.1 Rheumatic disorders of both mitral and tricuspid valves; G47.33 Obstructive sleep apnea (adult) (pediatric); H40.9 Unspecified glaucoma; M10.9 Gout, unspecified; K57.30 Diverticulosis of large intestine without perforation or abscess without bleeding; S00.11XA Contusion of right eyelid and periocular area, initial encounter; W19.XXXA Unspecified fall, initial encounter; Z95.5 Presence of coronary angioplasty implant and graft; Z79.82 Long term (current) use of aspirin; Z79.899 Other long term (current) drug therapy
CPT/HCPCS: 36415; 70450; 71045; 74177; 80048; 80053; 80202; 81001; 81003; 81599; 83605; 83690; 83735; 83993; 84100; 84132; 85025; 85027; 85651; 86140; 86762; 86803; 86850; 86900; 86901; 87040; 87045; 87046; 87086; 87177; 87209; 87340; 87389; 87493; 93306; 96361; 96365; 96375; 99283; 99284; 99285

== ENCOUNTER 2017-12-16 11:47 | Emergency (ER) | payer OTHER ==
[2017-12-16 12:20] VITALS: BP 119/49
== END 2017-12-16 14:14 | disposition left against medical advice (07) ==
LOC: ED 11:47
DX: Z53.21 Procedure and treatment not carried out due to patient leaving prior to being seen by health care provider (principal)